=== PATIENT | female | born 1990 | race Caucasian/White ===

== ENCOUNTER 2017-11-26 21:15 | Outpatient (CLI) | payer MEDICAID, SELFPAY ==
[2017-11-26 22:25] LABS: Hematocrit 36.9 % (37-47); Hemoglobin 12.6 g/dl (12.0-15.0); Mean Corp Hgb Conc 34.1 g/gl (32-36); Mean Corpuscular Hgb 31.1 pg (27.0-32.0); Mean Corpuscular Volume 91.1 fL (81-99); Mean Platelet Vol. 9.6 fl (6.2-12.0); Platelet Count 208 K/mm3 (150-450); RBC Distribution Width CV 13.1 % (11.6-14.6); RBC Distribution Width SD 43.3 fl (35.1-43.9); Red Blood Count 4.05 M/mm3 (4.2-5.4); White Blood Count 13.4 K/mm3 (4.4-11.0)
[2017-11-26 22:26] LABS: Scan Indicated on CBC? Y/N NO
[2017-11-26 22:30] LABS: Partial Thromboplast Time 25.2 Seconds (24.1-36.2)
[2017-11-27 00:05] VITALS: BP 126/65; PULSE 105; RESP 18; TEMP 35.9; O2SAT 98
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
[2017-11-29 10:30] LABS: Kleihauer-Betke Negative
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
== END 2017-11-26 22:15 | disposition home or self-care (01) ==
LOC: WPOUT 21:25 → WP 21:26
PROVIDERS: Family Provider Internal Medicine; PCP Internal Medicine; Visit Provider Obstetrics & Gynecology
DX: O99.89 Other specified diseases and conditions complicating pregnancy, childbirth and the puerperium (principal); S09.90XA Unspecified injury of head, initial encounter; Y04.2XXA Assault by strike against or bumped into by another person, initial encounter; Y93.89 Activity, other specified; Y92.9 Unspecified place or not applicable; Z3A.18 18 weeks gestation of pregnancy
CPT/HCPCS: 59050; 85027; 85460; 85730; 86850; 86900; 99218; G0378

== ENCOUNTER 2017-11-26 22:20 | Emergency (ER) | payer MEDICAID, SELFPAY ==
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
[2017-11-26 22:21] VITALS: BP 140/80; PULSE 119; RESP 8; TEMP 37.4; O2SAT 97; BMI 32.3
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
[2017-11-26] MEDS: Acetaminophen 325 MG Tablet 650 MG PO (23:48)
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
--- NOTE | 2017-11-27 02:25 | ED.RN ---
pt states she is tired of waiting for results. states she is leaving. advised pt that she was leaving against medical advice. pt verbalized understanding.
== END 2017-11-27 02:27 | disposition left against medical advice (07) ==
LOC: ED 11-27 00:28
PROVIDERS: Emergency Provider Emergency Medicine; Family Provider Internal Medicine; PCP Internal Medicine
DX: O99.89 Other specified diseases and conditions complicating pregnancy, childbirth and the puerperium (principal); S06.0X0A Concussion without loss of consciousness, initial encounter; W50.0XXA Accidental hit or strike by another person, initial encounter; Y93.9 Activity, unspecified; Y92.9 Unspecified place or not applicable; R55 Syncope and collapse; O99.332 Smoking (tobacco) complicating pregnancy, second trimester; Z3A.18 18 weeks gestation of pregnancy
CPT/HCPCS: 70450; 99281

== ENCOUNTER → 2018-02-01 08:46 | Outpatient (CLI) | payer MEDICAID, SELFPAY ==
[2018-02-01 09:33] LABS: Absolute Lymphocyte Count 1.45 X10^3/ul (0.83-4.51); Absolute Neutrophil Count 11.9 X10^3/uL (2.0-7.7); Basophil# 0.02 X10^3/uL; Basophil% 0.1 % (0-1); Eosinophil# 0.13 X10^3/uL; Eosinophils% 0.9 % (0-5); Hematocrit 38.3 % (37-47); Hemoglobin 12.8 g/dl (12.0-15.0); Lymphocyte # 1.45 X10^3/ul (4.0); Lymphocyte % 10.3 % (19-41); Mean Corp Hgb Conc 33.4 g/gl (32-36); Mean Corpuscular Hgb 31.1 pg (27.0-32.0); Mean Corpuscular Volume 93.2 fL (81-99); Mean Platelet Vol. 9.6 fl (6.2-12.0); Monocyte# 0.63 X10^3/uL; Monocyte% 4.5 % (0-10); Neutrophil # 11.85 X10^3/uL (2.7-7.7); Platelet Count 224 K/mm3 (150-450); RBC Distribution Width CV 12.3 % (11.6-14.6); RBC Distribution Width SD 41.2 fl (35.1-43.9); Red Blood Count 4.11 M/mm3 (4.2-5.4); White Blood Count 14.1 K/mm3 (4.4-11.0)
[2018-02-01 09:39] LABS: POSITIVE COUNT NO; POSITIVE DIFFERENTIAL NO; POSITIVE MORPHOLOGY NO
[2018-02-01 10:01] LABS: Glucose Challenge Gest 1H 50g 134 mg/dL (70-140)
[2018-02-02 02:41] LABS: Rapid Plasmin Reagin (RPR) NONREACTIVE (NONREACTIVE)
[2018-02-02 10:16] LABS: HIV - WCH Non-Reactive (Nonreactive)
[2018-02-03 00:23] LABS: HCV Quant. RNA PCR HCV Not Detected IU/mL (.)
== END ==
PROVIDERS: Visit Provider Obstetrics & Gynecology
DX: Z34.90 Encounter for supervision of normal pregnancy, unspecified, unspecified trimester (principal); Z11.3 Encounter for screening for infections with a predominantly sexual mode of transmission
CPT/HCPCS: 36415; 82950; 85025; 86592; 86703; 86850; 86900; 87522

== ENCOUNTER 2018-04-12 11:15 | Inpatient (IN) | payer MEDICAID, SELFPAY ==
[2018-04-12 11:00] VITALS: BMI 35.0
[2018-04-12 11:34] LABS: ROM Internal Control Test YES-OK TO RESULT pt. (Internal QC); ROM Patient Test Negative (Negative)
[2018-04-12] MEDS: Lactated Ringers 1,000 ML 50 ML IV ×2 (11:35→12:58)
[2018-04-12 11:58] LABS: Hematocrit 36.5 % (37-47); Hemoglobin 11.7 g/dl (12.0-15.0); Mean Corp Hgb Conc 32.1 g/gl (32-36); Mean Corpuscular Hgb 28.2 pg (27.0-32.0); Mean Platelet Vol. 9.3 fl (6.2-12.0); Platelet Count 345 K/mm3 (150-450); RBC Distribution Width CV 12.9 % (11.6-14.6); RBC Distribution Width SD 41.2 fl (35.1-43.9); Red Blood Count 4.15 M/mm3 (4.2-5.4); White Blood Count 16.2 K/mm3 (4.4-11.0)
[2018-04-12 11:59] LABS: Scan Indicated on CBC? Y/N NO
[2018-04-12 12:59] LABS: Group B Strep DNA By PCR Negative (Negative)
[2018-04-12 13:00] LABS: Internal Control PASS; Probe Check PASS; Specimen Processing Control PASS
[2018-04-12] MEDS: fentaNYL-bupivacaine (epidural) 100 ML BAG EPIDURAL (14:35)
[2018-04-12] MEDS: Ondansetron 4 MG/2 ML Vial IV (15:08)
[2018-04-12] MEDS: Oxytocin 30 units/NS 500 ml 30 UNITS/500 ML IV.SOLN 334 UNITS IV (16:22)
[2018-04-12] MEDS: Oxytocin 30 units/NS 500 ml 30 UNITS/500 ML IV.SOLN 167 UNITS IV (16:52)
--- NOTE | 2018-04-12 18:16 | PCM.HP.OB ---
- Problem List (1) Contraception management Status: Acute Qualifiers: Comment: plan PPTL title 19 form signed 02/01/18 (2) Previous child with anomaly, antepartum Status: Acute Comment: previous child with gastroschesis, another with tracheomalacia. normal anatomy scan. recommend third trimester growth scan (3) Supervision of high-risk Status: Acute Qualifiers: Comment: PRR boy PC anibal joyce madelaina Jonathan (4) Anxiety during Status: Acute Comment: ke, counseling suggested History Date of Admission: 04/12/18 Final ROBBIN: 04/29/18 Gestational age: 37 Weeks and 4 Days History of this : This is a 27 year-old, at 37 weeks gestational age presents IAL. she has had a complicated by transfer of care and some social issues in the beginning of . she had an ultrasound today with MFM that showed a bilateral hydrocele and frontal bossing of the head but otherwise it was normal. Medical History: Medical History (Last Reviewed 04/05/18 @ 09:24 by Marleny Encinas) Anxiety F41.9 Depression F32.9 Surgical History: Surgical History (Last Reviewed 04/05/18 @ 09:24 by Marleny Encinas) H/O dilation and curettage Z98.890 Allergies nalbuphine HCl [From Nubain] Allergy (Verified 04/05/18 09:24) Angioedema bupropion HCl [From Wellbutrin] Adverse Reaction (Verified 04/05/18 09:24) PSYCHOTIC EPISODES paroxetine [From Paxil] Adverse Reaction (Verified 04/05/18 09:24) DIZZINESS Home Medications: Home Medications citalopram 20 mg tablet 20 mg PO QDAY #30 tab 02/01/18 vitamin,calcium,mjrwpbcp-pyrf-zaazd acid tablet 1 tab PO QDAY 02/01/18 amoxicillin 500 mg capsule 1,000 mg PO BID 10 Days #40 cap 04/05/18 Smoking Status: Current every day smoker Alcohol: None Number of Fetus(es): 1 Heart Tracins moderate variability reactive no decels cat I tracing TOCO Analysis: q 2-3 History Past Pregnancies: Past Pregnancies Pregancy History 13 Elective abortions Hx Para 3 Spontaneous abortions 9 Hx # Term Pregnancies 3 Ectopic pregnancies Hx # Pregnancies Multiple births # of living children 3 Past Pregnancies Del. 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 Unknown 2013 Anibal 40 live - full term Male [place] Labs: Mom's Microbiology 04/12/18 Unknown Genital vaginal Group B Streptococcus Culture - Pending Mom's Labs & Results 04/12/18 04/12/18 04/12/18 11:05 11:30 11:35 WBC 16.2 H RBC 4.15 L Hgb 11.7 L Hct 36.5 L MCV 88.0 MCH 28.2 MCHC 32.1 RDW 12.9 RDW Differential 41.2 Plt Count 345 MPV 9.3 Vag Amniotic Fld Detect Negative Group B Strep DNA Negative Specimen Comment Not Reportable Blood Type Antibody Screen 04/12/18 11:35 WBC RBC Hgb Hct MCV MCH MCHC RDW RDW Differential Plt Count MPV Vag Amniotic Fld Detect Group B Strep DNA Specimen Comment Blood Type A POSITIVE Antibody Screen NEGATIVE Course Did the patient receive Yes care? Labs Blood Type: A RH: POSITIVE RPR/VDRL/Syphilis Nonreactive Rubella status Immune HbSAg Negative Date Done: 10/16/17 Chlamydia Negative Gonorrhea Negative HIV/AIDS Non-Reactive Group B Strep: Collected on Admission Current Obstetrical History Gestational Diabetes No Incompetent Cervix No Infertility No IUGR No Macrosomia No Hypertension/Pre-eclampsia No Placenta Previa/Abruption No PTL/PROM No Uterine anomaly No Oligohydramnios No Polyhydramnios No Multiple gestation No Past Medical History Asthma No Diabetes No Hypertension No Heart disease No Mitral valve prolapse No Neurologic/Seizure disorder/ No Migraines Kidney disease No Liver disease No Varicosities No Clotting disorders/Hx of DVT No Thyroid Dysfunction No Other medical diseases No Psychiatric disorders No Major trauma No Abnormal PAP smear No Sleep apnea No Mammogram in the last 2 years No Social History Marital Status: SINGLE Alleged father Jonathan Hx Smoking Yes Smoking Status Current every day smoker Expected Infant Delivery Method: Spontaneous Vaginal Review of Systems Constitutional: Denies: Fever, Malaise Eyes: Denies: Blurred vision, Vision Change HEENT: Denies: Head Aches, Visual Changes Cardiovascular: Denies: Chest Pain, Palpitations Respiratory: Denies: Cough, Shortness of Breath, Wheezing Gastrointestinal: Reports: Abdominal Pain, Nausea. Denies: Diarrhea, Vomiting Genitourinary: Denies: Dysuria, Hematuria Musculoskeletal: Denies: Joint Pain, Muscle pain Skin: Denies: Lesions, Rash Neurological: Denies: Blurred vision, Focal weakness, Headaches Psychiatric: Denies: Anxiety, Depression Endocrine: Denies: Heat/ Cold Intolerance Hematologic/ Lymphatic: Denies: Easy Bruising, Easy Bleeding Physical Exam General: Alert, Cooperative, No apparent distress HEENT: Atraumatic, Normocephalic. Negative for: Thyromegaly, Lymphadenopathy Cardiovascular: Regular rate Lungs: Normal air movement Abdomen: Soft, Non Tender, Gravid Neurological: Deep Tendon Reflexes 2+/4 and Symmetrical, Neuro grossly intact. Negative for: Clonus SCIENCE LIAISON: Normal external genitalia. Negative for: Vulvar lesions Estimated gestational size: Appropriate for gestational size Presentation: Cephalic Cervix Dilation (cm): 4 Assessment/Plan All Active Problems (Last Reviewed 04/05/18 @ 09:24 by Marleny Encinas) Bronchitis (Acute) Contraception management (Acute) Previous child with anomaly, antepartum (Acute) Supervision of high-risk (Acute) Anxiety during (Acute) Trauma (Resolved) This is a 27 year-old, [id number] 37 weeks gestational age. Patient presents IAL, plan expectant management for , pitocin/AROM PRN if needed. Pain management: plans epidural. GBS negative. Management of any complications: discussed ultrasound abnormalities with ped I have reviewed the [facility] and made any clinically relevant updates.
--- NOTE | 2018-04-12 18:20 | HP.PCM_ITS ---
- Problem List (1) Contraception management Status: Acute Qualifiers: Comment: plan PPTL title 19 form signed 02/01/18 (2) Previous child with anomaly, antepartum Status: Acute Comment: previous child with gastroschesis, another with tracheomalacia. normal anatomy scan. recommend third trimester growth scan (3) Supervision of high-risk Status: Acute Qualifiers: Comment: PRR boy PC anibal joyce madelaina Jonathan (4) Anxiety during Status: Acute Comment: ke, counseling suggested History Date of Admission: 04/12/18 Final ROBBIN: 04/29/18 Gestational age: 37 Weeks and 4 Days History of this : This is a 27 year-old, at 37 weeks gestational age presents IAL. she has had a complicated by transfer of care and some social issues in the beginning of . she had an ultrasound today with MFM that showed a bilateral hydrocele and frontal bossing of the head but otherwise it was normal. Medical History: Medical History (Last Reviewed 04/05/18 @ 09:24 by Marleny Encinas) Anxiety F41.9 Depression F32.9 Surgical History: Surgical History (Last Reviewed 04/05/18 @ 09:24 by Marleny Encinas) H/O dilation and curettage Z98.890 Allergies nalbuphine HCl [From Nubain] Allergy (Verified 04/05/18 09:24) Angioedema bupropion HCl [From Wellbutrin] Adverse Reaction (Verified 04/05/18 09:24) PSYCHOTIC EPISODES paroxetine [From Paxil] Adverse Reaction (Verified 04/05/18 09:24) DIZZINESS Home Medications: Home Medications citalopram 20 mg tablet 20 mg PO QDAY #30 tab 02/01/18 vitamin,calcium,tqcdepfz-oohz-vymxv acid tablet 1 tab PO QDAY 02/01/18 amoxicillin 500 mg capsule 1,000 mg PO BID 10 Days #40 cap 04/05/18 Smoking Status: Current every day smoker Alcohol: None Number of Fetus(es): 1 Heart Tracins moderate variability reactive no decels cat I tracing TOCO Analysis: q 2-3 History Past Pregnancies: Past Pregnancies Pregancy History 13 Elective abortions Hx Para 3 Spontaneous abortions 9 Hx # Term Pregnancies 3 Ectopic pregnancies Hx # Pregnancies Multiple births # of living children 3 Past Pregnancies Del. 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 Unknown 2013 Anibal 40 live - full term Male [place] Labs: Mom's Microbiology 04/12/18 Unknown Genital vaginal Group B Streptococcus Culture - Pending Mom's Labs & Results 04/12/18 04/12/18 04/12/18 11:05 11:30 11:35 WBC 16.2 H RBC 4.15 L Hgb 11.7 L Hct 36.5 L MCV 88.0 MCH 28.2 MCHC 32.1 RDW 12.9 RDW Differential 41.2 Plt Count 345 MPV 9.3 Vag Amniotic Fld Detect Negative Group B Strep DNA Negative Specimen Comment Not Reportable Blood Type Antibody Screen 04/12/18 11:35 WBC RBC Hgb Hct MCV MCH MCHC RDW RDW Differential Plt Count MPV Vag Amniotic Fld Detect Group B Strep DNA Specimen Comment Blood Type A POSITIVE Antibody Screen NEGATIVE Course Did the patient receive Yes care? Labs Blood Type: A RH: POSITIVE RPR/VDRL/Syphilis Nonreactive Rubella status Immune HbSAg Negative Date Done: 10/16/17 Chlamydia Negative Gonorrhea Negative HIV/AIDS Non-Reactive Group B Strep: Collected on Admission Current Obstetrical History Gestational Diabetes No Incompetent Cervix No Infertility No IUGR No Macrosomia No Hypertension/Pre-eclampsia No Placenta Previa/Abruption No PTL/PROM No Uterine anomaly No Oligohydramnios No Polyhydramnios No Multiple gestation No Past Medical History Asthma No Diabetes No Hypertension No Heart disease No Mitral valve prolapse No Neurologic/Seizure disorder/ No Migraines Kidney disease No Liver disease No Varicosities No Clotting disorders/Hx of DVT No Thyroid Dysfunction No Other medical diseases No Psychiatric disorders No Major trauma No Abnormal PAP smear No Sleep apnea No Mammogram in the last 2 years No Social History Marital Status: SINGLE Alleged father Jonathan Hx Smoking Yes Smoking Status Current every day smoker Expected Infant Delivery Method: Spontaneous Vaginal Review of Systems Constitutional: Denies: Fever, Malaise Eyes: Denies: Blurred vision, Vision Change HEENT: Denies: Head Aches, Visual Changes Cardiovascular: Denies: Chest Pain, Palpitations Respiratory: Denies: Cough, Shortness of Breath, Wheezing Gastrointestinal: Reports: Abdominal Pain, Nausea. Denies: Diarrhea, Vomiting Genitourinary: Denies: Dysuria, Hematuria Musculoskeletal: Denies: Joint Pain, Muscle pain Skin: Denies: Lesions, Rash Neurological: Denies: Blurred vision, Focal weakness, Headaches Psychiatric: Denies: Anxiety, Depression Endocrine: Denies: Heat/ Cold Intolerance Hematologic/ Lymphatic: Denies: Easy Bruising, Easy Bleeding Physical Exam General: Alert, Cooperative, No apparent distress HEENT: Atraumatic, Normocephalic. Negative for: Thyromegaly, Lymphadenopathy Cardiovascular: Regular rate Lungs: Normal air movement Abdomen: Soft, Non Tender, Gravid Neurological: Deep Tendon Reflexes 2+/4 and Symmetrical, Neuro grossly intact. 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 Negative for: Vulvar lesions Estimated gestational size: Appropriate for gestational size Presentation: Cephalic Cervix Dilation (cm): 4 Assessment/Plan All Active Problems (Last Reviewed 04/05/18 @ 09:24 by Marleny Encinas) Bronchitis (Acute) Contraception management (Acute) Previous child with anomaly, antepartum (Acute) Supervision of high-risk (Acute) Anxiety during (Acute) Trauma (Resolved) This is a 27 year-old, [id number] 37 weeks gestational age. Patient presents IAL, plan expectant management for , pitocin/AROM PRN if needed. Pain management: plans epidural. GBS negative. Management of any complications: discussed ultrasound abnormalities with ped I have reviewed the [facility] and made any clinically relevant updates.
[2018-04-12] MEDS: Acetaminophen 500 MG Tablet 1000 MG PO (18:29)
--- NOTE | 2018-04-12 19:50 | NURSING ---
Patient requesting to go outside to smoke. Patient still has epidural catheter and IV in place for tubal scheduled for tomorrow at 1300. Dr. Ellis talked to patient. Patient no longer wants to have tubal tomorrow.
[2018-04-12 20:00] VITALS: BP 117/64; PULSE 74; RESP 18; TEMP 36.2; O2SAT 97
--- NOTE | 2018-04-12 20:06 | PCM.OB.VAG ---
- Problem List (1) Contraception management Status: Acute Qualifiers: Comment: plan PPTL title 19 form signed 02/01/18 (2) Previous child with anomaly, antepartum Status: Acute Comment: previous child with gastroschesis, another with tracheomalacia. normal anatomy scan. recommend third trimester growth scan (3) Supervision of high-risk Status: Acute Qualifiers: Comment: PRR boy PC ina joyce madelaina Jonathan (4) Anxiety during Status: Acute Comment: celexa, counseling suggested Vaginal Delivery Maternal Presentation: Active Labor ial 37 weeks Amniotic Membrane Rupture Type: Artificial Amniotic Fluid Description: Clear Final ROBBIN: 04/29/18 Gestational age: 37 Weeks and 4 Days Date of Procedure: 04/12/18 Pre-Operative Diagnosis: ial Post-Operative Diagnosis: same Surgery/ Procedure Performed: Spontaneous Vaginal Delivery Type of Anesthesia: Epidural Description of Procedure: Patient began pushing and delivered the head in the DAMION presentation. The head was delivered atraumatically . The anterior and posterior shoulders delivered without complication followed by the rest of the and the was placed on the maternal abdomen. Delayed cord clamping was employed for approximately 60 seconds. Cord was clamped and cut and gentle traction was applied to the cord and the placenta delivered spontaneously immediately following it was noted to be intact with three-vessel cord. The perineum and vagina were inspected and noted to have a small first-degree perineal laceration that was repaired with a single [id number] suture. EBL was 4 50 cc. Patient and tolerated delivery well. Presentation: DAMION Placental Delivery Description: Spontaneous Placenta Disposition: [facility]
--- NOTE | 2018-04-12 20:10 | NURSING ---
Epidural catheter removed, blue tip intact.
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
--- NOTE | 2018-04-12 21:34 | NURSING ---
Patient voided x2 out of hat before IV was removed.
[2018-04-12] MEDS: Citalopram 20 MG Tablet PO (22:21)
[2018-04-12] MEDS: Naproxen 250 MG Tablet PO (22:22)
[2018-04-12] MEDS: AMOXICILLIN 500 MG CAPSULE 1000 MG PO (22:23)
[2018-04-13 00:30] VITALS: BP 112/65; PULSE 65; RESP 18; TEMP 36.2; O2SAT 95
[2018-04-13 04:30] VITALS: BP 116/77; PULSE 62; RESP 18; TEMP 36.2; O2SAT 97
--- NOTE | 2018-04-13 08:22 | PCM.PN.OB ---
Subjective: NO CP, LOF. Plans nexplanon insertion today then home. Pain controlled. - Physical Exam General: Alert, Oriented x3 Abdomen: Soft, Non Tender, - - FF below U Vital Signs Temp Pulse Resp BP Pulse Ox 97.2 F L 62 18 116/77 97 04/13/18 04:30 04/13/18 04:30 04/13/18 04:30 04/13/18 04:30 04/13/18 04:30 Oxygen Delivery Method Room Air Weight: 204 lb 4 oz Body Mass Index (BMI) 35.0 Intake and Output for Last 24 Hours 04/11/18 04/12/18 04/13/18 23:59 23:59 23:59 Intake Total 1100 / 1100 Balance 1100 / 1100 Laboratory Tests Past 24 Hrs 04/12/18 04/12/18 04/12/18 11:05 11:30 11:35 WBC 16.2 H RBC 4.15 L Hgb 11.7 L Hct 36.5 L MCV 88.0 MCH 28.2 MCHC 32.1 RDW 12.9 RDW Differential 41.2 Plt Count 345 MPV 9.3 Vag Amniotic Fld Detect Negative Group B Strep DNA Negative Specimen Comment Not Reportable Blood Type Antibody Screen 04/12/18 11:35 WBC RBC Hgb Hct MCV MCH MCHC RDW RDW Differential Plt Count MPV Vag Amniotic Fld Detect Group B Strep DNA Specimen Comment Blood Type A POSITIVE Antibody Screen NEGATIVE Medical Necessity - Tobacco Use Smoking Status: Current every day smoker Assessment/Plan All Active Problems (Last Reviewed 04/05/18 @ 09:24 by Marleny Encinas) Bronchitis (Acute) Contraception management (Acute) Previous child with anomaly, antepartum (Acute) Supervision of high-risk (Acute) Anxiety during (Acute) Trauma (Resolved) PPD #1 Routine care. Nexplanon today the wi home.
--- NOTE | 2018-04-13 08:25 | PCM.DCVAG ---
Additional Instructions: If you experience any of the following, contact your healthcare provider. Bleeding that soaks a pad every hour for 2 hours Fever 100.4 or higher Unrelieved incision or abdominal pain Swelling, redness, discharge or bleeding from your incision or episiotomy site Your incision begins to separate Problems urinating (including inability to urinate or burning while urinating). Visual changes Severe headache Flu-like symptoms Pain or redness in one of both of your breasts Pain, warmth, tenderness or swelling in your legs, especially the calf area Frequent nausea and vomiting Symptoms of depression or anxiety If you experience any of the following, call 911 or go to the nearest Emergency Room. Chest pain Problems breathing Seizure activity Partial or complete paralysis of a body part, slurred speech, weakness or drooping of the face, or a sudden inability to walk or hold your balance Allergies/Adverse Reactions: Allergies nalbuphine HCl [From Nubain] Allergy (Verified 04/05/18 09:24) Angioedema bupropion HCl [From Wellbutrin] Adverse Reaction (Verified 04/05/18 09:24) PSYCHOTIC EPISODES paroxetine [From Paxil] Adverse Reaction (Verified 04/05/18 09:24) DIZZINESS Medications to take at Discharge citalopram 20 mg tablet 20 mg PO QDAY #30 tab 02/01/18 vitamin,calcium,bfwaqzte-sklg-nkdyl acid tablet 1 tab PO QDAY 02/01/18 amoxicillin 500 mg capsule 1,000 mg PO BID 10 Days #40 cap 04/05/18 Primary Care Physician: Care Physician,No Primary [Primary Care Provider] - Test Results: Test results from this visit will be discussed in further detail at your follow-up appointment, if applicable.
--- NOTE | 2018-04-13 08:26 | DCINST_ITS ---
Additional Instructions: If you experience any of the following, contact your healthcare provider. * Bleeding that soaks a pad every hour for 2 hours * Fever 100.4 or higher * Unrelieved incision or abdominal pain * Swelling, redness, discharge or bleeding from your incision or episiotomy site * Your incision begins to separate * Problems urinating (including inability to urinate or burning while urinating) . * Visual changes * Severe headache * Flu-like symptoms * Pain or redness in one of both of your breasts * Pain, warmth, tenderness or swelling in your legs, especially the calf area * Frequent nausea and vomiting * Symptoms of depression or anxiety If you experience any of the following, call 911 or go to the nearest Emergency Room. * Chest pain * Problems breathing * Seizure activity * Partial or complete paralysis of a body part, slurred speech, weakness or drooping of the face, or a sudden inability to walk or hold your balance Allergies/Adverse Reactions: Allergies nalbuphine HCl [From Nubain] Allergy (Verified 04/05/18 09:24) Angioedema bupropion HCl [From Wellbutrin] Adverse Reaction (Verified 04/05/18 09:24) PSYCHOTIC EPISODES paroxetine [From Paxil] Adverse Reaction (Verified 04/05/18 09:24) DIZZINESS Medications to take at Discharge citalopram 20 mg tablet 20 mg PO QDAY #30 tab 02/01/18 vitamin,calcium,rxpfjshb-rzos-ccdxa acid tablet 1 tab PO QDAY 02/01/18 amoxicillin 500 mg capsule 1,000 mg PO BID 10 Days #40 cap 04/05/18 Primary Care Physician: Care Physician,No Primary [Primary Care Provider] - Test Results: Test results from this visit will be discussed in further detail at your follow- up appointment, if applicable.
[2018-04-13] MEDS: AMOXICILLIN 500 MG CAPSULE 1000 MG PO (08:31)
[2018-04-13] MEDS: Senna/Docusate Sodium 1 Tablet PO (08:31)
[2018-04-13] MEDS: Citalopram 20 MG Tablet PO (08:31)
[2018-04-13] MEDS: Prenatal Vits Tablet 1 TABLET PO (08:31)
[2018-04-13 08:49] VITALS: BP 117/86; PULSE 89; RESP 16; TEMP 36.4; O2SAT 95
[2018-04-13] MEDS: Naproxen 250 MG Tablet PO (11:40)
--- NOTE | 2018-04-13 12:20 | PCM.OP.BLANK ---
Problem List (1) Contraception management Status: Acute Qualifiers: Comment: plan PPTL title 19 form signed 02/01/18 (2) Previous child with anomaly, antepartum Status: Acute Comment: previous child with gastroschesis, another with tracheomalacia. normal anatomy scan. recommend third trimester growth scan (3) Supervision of high-risk Status: Acute Qualifiers: Comment: PRR boy PC ina joyce madelaina Jonathan (4) Anxiety during Status: Acute Comment: ke, counseling suggested Operative Report Date of Procedure: 04/13/18 patient confirmed site device s/p immediate PP nexplanon desired. left arm 8 cm from medial epicondyle prepped with chloraprep and injected with 1% lidocaine. 5 mm incision made and nexplanon device inserted without difficulty subcutaneously. steri strip and pressure bandage applied. patient tolerated procedure well no complications.
[2018-04-13 12:22] VITALS: BP 119/63; PULSE 76; RESP 18; TEMP 36.2; O2SAT 97
[2018-04-13] MEDS: Etonogestrel 68 MG IMPLANT SQ (13:24)
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
[2018-04-13] MEDS: oxyCODONE 5 MG Tablet PO (13:34)
--- NOTE | 2018-04-13 15:00 | CASEMGMT ---
Social Work Labor and Delivery Unit Called [facility] ([facility]) and spoke with Cynthia Curiel in the intake department. Referral given due to [facility] having an active case with this this family and new minor going into the home. Brief maternal and histories provided to Cynthia. Reviewed reports by nursing staff and documentation about observed interactions nursing has had with MOB, support person, and other children. Cynthia reports will add information reported today. No other services requested or indicated. See previous social work documentation this date for details of family history and resources provided. -RUFINA Singleton, WEALTH MANAGEMENT ADVISOR
[2018-04-13 15:45] VITALS: BP 127/54; PULSE 65; RESP 17; TEMP 36.3; O2SAT 97
== END 2018-04-13 17:30 | disposition home or self-care (01) | DRG 373 ==
LOC: WPOUT 11:19 → WP 12:55
PROVIDERS: Admitting Provider Obstetrics & Gynecology; Visit Provider Obstetrics & Gynecology
DX: O35.8XX0 Maternal care for other (suspected) fetal abnormality and damage, not applicable or unspecified (principal); O26.23 Pregnancy care for patient with recurrent pregnancy loss, third trimester; O70.0 First degree perineal laceration during delivery; O99.344 Other mental disorders complicating childbirth; F41.9 Anxiety disorder, unspecified; O99.334 Smoking (tobacco) complicating childbirth; Z87.59 Personal history of other complications of pregnancy, childbirth and the puerperium; Z3A.37 37 weeks gestation of pregnancy; Z37.0 Single live birth; Z30.017 Encounter for initial prescription of implantable subdermal contraceptive
CPT/HCPCS: 59025; 59050; 84112; 85027; 86850; 86900; 87081; 87653; 99218; J7120; G0378; J2405

== ENCOUNTER → 2018-08-09 13:08 | Outpatient (CLI) | payer MEDICAID, SELFPAY | PROVIDERS: Referring Provider Obstetrics & Gynecology; Visit Provider Obstetrics & Gynecology | DX: Z01.818 Encounter for other preprocedural examination (principal) | CPT/HCPCS: 86735 ==

== ENCOUNTER 2019-06-11 19:07 | Emergency (ER) | payer MEDICAID, SELFPAY ==
[2019-06-11 19:08] VITALS: BP 113/71; PULSE 107; RESP 16; TEMP 36.8; O2SAT 98; BMI 35.2
--- NOTE | 2019-06-11 19:22 | ED.RN ---
DR ANAND CONSULTED ON PT. PER 'S ORDER OB CALLED AND CONSULTED. NOVELTY DIPPER STATED PT CARE WAS APPROPRIATE FOR ED. Gianni STANFORD RN [phone]
[2019-06-11 19:45] VITALS: BP 113/71; PULSE 107; RESP 16; TEMP 36.8; O2SAT 98
--- NOTE | 2019-06-11 21:36 | DCINST.ED_ITS ---
ED Disposition - Plan for ED Patient: Instructions: ED Dyspnea Referrals: Toña Parra CNM [Certified Nurse Production Or Plant Engineer] -
--- NOTE | 2019-06-12 01:03 | ED.VISSUMM ---
- ER Visit Summary Date of Service: 06/12/19 Chief Complaint: Cough History of Present Illness: The patient is a 29 F presenting with cough x2 weeks. She has had a nonproductive cough. She denies fever or chills. She is currently 21 weeks . She denies vaginal bleeding or contractions. She also complains of right upper quadrant abdominal pain which is worsened with deep inspiration. Denies nausea, vomiting, diarrhea. Denies urinary complaints. She is . Physical Examination: Vitals are stable. Heart rate 107. Patient is afebrile. Pulse ox 98% on room air. Alert no acute distress. HEENT exam is unremarkable. Neck is supple. Lungs are clear and equal bilaterally. Heart is regular and tachycardic Abdomen is soft gravid, mild right upper quadrant tenderness with no rebound or guarding Extremities are unremarkable. Skin is warm and dry. No focal neurologic deficit. Remainder of exam is unremarkable. Emergency Department Course and Treatment: heart tones 150. Patient states she is unable to stay in the ED for any testing. She states she needs to get home to her children. She declines chest x-ray, labs, evaluation for PE. She understands risks of leaving AGAINST MEDICAL ADVICE and signs out AGAINST MEDICAL ADVICE. She will follow-up with her CIGAR PACKER AND SORTER tomorrow. She is advised to return to ED for worsening complaints. Disposition: AGAINST MEDICAL ADVICE Impression: Cough, URI This note was generated with [employer] dictation software. It may contain incorrect words, spelling, and punctuation that were not noted in review of the chart prior to signing ED Disposition - Plan for ED Patient: Disposition: Against Medical Advice Instructions: ED Dyspnea Referrals: Toña Parra CNM [Certified Nurse Plate Conditioner] -
== END 2019-06-11 21:40 | disposition left against medical advice (07) ==
PROVIDERS: Emergency Provider Emergency Medicine
DX: O99.512 Diseases of the respiratory system complicating pregnancy, second trimester (principal); J06.9 Acute upper respiratory infection, unspecified; O26.892 Other specified pregnancy related conditions, second trimester; R10.11 Right upper quadrant pain; O99.332 Smoking (tobacco) complicating pregnancy, second trimester; Z3A.21 21 weeks gestation of pregnancy; Z53.29 Procedure and treatment not carried out because of patient's decision for other reasons
CPT/HCPCS: 99282

== ENCOUNTER 2019-07-28 13:40 | Outpatient (CLI) | payer MEDICAID, SELFPAY ==
[2019-07-28 14:06] VITALS: BMI 37.0
[2019-07-28 14:24] LABS: Color, Urine Straw (Yellow); Glucose, Dipstick Normal (Normal); Ketone-Dipstick Negative (Negative); Leukocyte Esterase-Dipstick Negative /ul (Negative); Nitrite-Dipstick Negative (Negative); Occult Blood-Urine Negative /ul (Negative); Protein-Dipstick Negative (Negative); Specific Gravity, Urine 1.005 (1.002-1.030); Urine Bilirubin Dipstick Negative (Negative); Urine Clarity Clear (Clear); Urine Urobilinogen Normal (Normal)
[2019-07-28 15:25] VITALS: RESP 18
--- NOTE | 2019-07-28 20:09 | OB.TRI.NOTE ---
- Problem List (1) 28 weeks gestation of Status: Acute (2) Back pain Status: Acute (3) Multiparous Status: Acute (4) URI (upper respiratory infection) Status: Acute History of Present Illness Date of Service: 07/28/19 Was patient seen by the physician?: No Reason For Visit: BACK PAIN Final ROBBIN: 10/14/19 Gestational age: 28 Weeks and 6 Days History of Present Illness: who presents at 28w6d with back pain. Pt went to the ED for respiratory illness, and she was sent to triage for evaluation of low back pain. No cramping, ctx, vb, lof. Good FM. No nausea, vomiting, fevers, chills, urinary symptoms, changes in BM's. Allergies adhesive tape Allergy (Verified 07/28/19 14:06) Rash nalbuphine HCl [From Nubain] Allergy (Verified 07/28/19 14:06) Angioedema bupropion HCl [From Wellbutrin] Adverse Reaction (Verified 07/28/19 14:06) PSYCHOTIC EPISODES paroxetine [From Paxil] Adverse Reaction (Verified 07/28/19 14:06) DIZZINESS paper tape Allergy (Uncoded 07/28/19 14:06) Rash - Pertinent Past Medical History Medical History: Past Medical History (Last Reviewed 05/28/18 @ 10:11 by Chacha Leal) Anxiety Depression Surgical History: Past Surgical History (Last Reviewed 05/28/18 @ 10:11 by Chacha Leal) H/O dilation and curettage Laboratory Studies: Laboratory Tests 07/28/19 Range/Units 13:40 Urine Color Straw (Yellow) Urine Clarity Clear (Clear) Urine pH 7.0 (5.0 - 8.0) Ur Specific [place] 1.005 (1.002-1.030) Urine Protein Negative (Negative) mg/dl Urine Glucose (UA) Normal (Normal) mg/dl Urine Ketones Negative (Negative) mg/dl Urine Occult Blood Negative (Negative) /ul Urine Nitrite Negative (Negative) Urine Bilirubin Negative (Negative) mg/dL Urine Urobilinogen Normal (Normal) mg/dl Ur Leukocyte Esterase Negative (Negative) /ul Physical Exam Vitals: Vital Signs Resp 18 07/28/19 15:25 NST - FHR Rate Baby A Baseline: 130 Variability:: Moderate Accelerations:: 15 x 15 Decelerations:: None NST Reactive:: Yes FHR Category:: Category I Uterine Activity:: Irritability Impression/Plan NST reactive Pt comfortable appearing per RN and sleeping in triage Low back pain likely normal related No signs of PTL To go to ED for evaluation of respiratory illness
== END 2019-07-28 15:25 | disposition home or self-care (01) ==
LOC: WPOUT 13:56 → OBT 13:57
PROVIDERS: Visit Provider Obstetrics & Gynecology
DX: O26.893 Other specified pregnancy related conditions, third trimester (principal); M54.5 Low back pain; O09.43 Supervision of pregnancy with grand multiparity, third trimester; O99.513 Diseases of the respiratory system complicating pregnancy, third trimester; J06.9 Acute upper respiratory infection, unspecified; Z3A.28 28 weeks gestation of pregnancy
CPT/HCPCS: 59025; 59050; 81002; 99218; G0378

== ENCOUNTER → 2019-09-11 11:42 | Outpatient (CLI) | payer MEDICAID, SELFPAY ==
--- NOTE | 2019-09-11 11:47 | VDLE_ITS ---
Reason For Study: Bilateral Edema RIGHT LEFT GSV is normal. GSV is normal. FV is compressible, spontaneous, phasic, FV is compressible, spontaneous, phasic, competent and demonstrates normal competent and demonstrates normal augmentation. augmentation. POP V is compressible, spontaneous, phasic, POP V is compressible, spontaneous, phasic, competent and demonstrates normal competent and demonstrates normal augmentation. augmentation. T/P Trunk is compressible. T/P Trunk is compressible. PTV is compressible. PTV is compressible. RT PerV is compressible. LT PerV is compressible. CFV and SFJ only visualized with color and CFV and SFJ only visualized with color and doppler due to , appears patent. doppler due to , appears patent. Procedure Exam performed in department. A preliminary report was called and/or faxed to [facility]. Interpretation Summary Deep veins of the lower extremities are bilaterally patent and compressible segmentally. There is no evidence of deep vein thrombosis on either side. Valvular competence appears intact within the proximal deep venous systems bilaterally. The great saphenous veins appear bilaterally patent and compressible segmentally. Ordering Physician: Toña Parra Performed By: Krystyna Cochran RVT
== END ==
PROVIDERS: Referring Provider Advanced Practice Midwife; Visit Provider Advanced Practice Midwife
DX: R60.0 Localized edema (principal)
CPT/HCPCS: 93970

== ENCOUNTER 2019-09-18 09:00 | Outpatient (CLI) | payer MEDICAID, SELFPAY ==
[2019-09-18 09:11] VITALS: BP 125/80; PULSE 106; TEMP 98.2; O2SAT 97
[2019-09-18 09:12] VITALS: BMI 38.6
[2019-09-18 10:04] LABS: Mucous, Urine 0 SEEN /hpf (<or=2+); Red Blood Cells-Urine 0 SEEN /hpf (0-5); White Blood Cells 0 SEEN /hpf (0-5)
[2019-09-18 10:06] LABS: Color, Urine Yellow (Yellow); Glucose, Dipstick Normal (Normal); Ketone-Dipstick Negative (Negative); Leukocyte Esterase-Dipstick Negative /ul (Negative); Nitrite-Dipstick Negative (Negative); Occult Blood-Urine Negative /ul (Negative); Protein-Dipstick Negative (Negative); Specific Gravity, Urine 1.005 (1.002-1.030); Urine Bilirubin Dipstick Negative (Negative); Urine Clarity Clear (Clear); Urine Urobilinogen Normal (Normal)
[2019-09-18 10:12] LABS: Bacteria 1+ /hpf (None Seen); Squamous Epithelial Cells - UA 0-5 SEEN /hpf (5-10)
--- NOTE | 2019-09-18 17:36 | OB.TRI.NOTE ---
History of Present Illness Date of Service: 09/18/19 Was patient seen by the physician?: No Reason For Visit: R/O LABOR Date of Service: 09/18/19 Final ROBBIN: 10/14/19 Final ROBBIN Source: US <20 weeks Gestational age: 36 Weeks and 2 Days Allergies adhesive tape Allergy (Verified 07/28/19 14:06) Rash nalbuphine HCl [From Nubain] Allergy (Verified 07/28/19 14:06) Angioedema bupropion HCl [From Wellbutrin] Adverse Reaction (Verified 07/28/19 14:06) PSYCHOTIC EPISODES paroxetine [From Paxil] Adverse Reaction (Verified 07/28/19 14:06) DIZZINESS paper tape Allergy (Uncoded 07/28/19 14:06) Rash - Pertinent Past Medical History Medical History: Past Medical History (Last Reviewed 05/28/18 @ 10:11 by Chacha Leal) Anxiety Depression Surgical History: Past Surgical History (Last Reviewed 05/28/18 @ 10:11 by Chacha Leal) H/O dilation and curettage Laboratory Studies: Laboratory Tests 09/18/19 Range/Units 09:55 Urine Color Yellow (Yellow) Urine Clarity Clear (Clear) Urine pH 7.0 (5.0 - 8.0) Ur Specific [place] 1.005 (1.002-1.030) Urine Protein Negative (Negative) mg/dl Urine Glucose (UA) Normal (Normal) mg/dl Urine Ketones Negative (Negative) mg/dl Urine Occult Blood Negative (Negative) /ul Urine Nitrite Negative (Negative) Urine Bilirubin Negative (Negative) mg/dL Urine Urobilinogen Normal (Normal) mg/dl Ur Leukocyte Esterase Negative (Negative) /ul Urine RBC 0 SEEN (0-5) /hpf Urine WBC 0 SEEN (0-5) /hpf Ur Squamous Epith Cells 0-5 SEEN (5-10) /hpf Urine Bacteria 1+ (None Seen) /hpf Urine Mucus 0 SEEN (<or=2+) /hpf NST - FHR Rate Baby A Baseline: 130 Variability:: Moderate Accelerations:: 15 x 15 Decelerations:: Variable - questionable- difficult to assess due to tracing being broken up NST Reactive:: Yes FHR Category:: Category I - uanble to completely asses but appears to be category 1- however there was a lot of tracing that was broken up Uterine Activity:: irregular Impression/Plan 29yo here for r/o labor 1) Tracing reviewed when i arrived on unit after patient had been discharged home- difficult to completely assess accurately due to break up in tracing- I personally called the patient and asked her to come back so i could get a reactive cat 1 tracing without interruptions. pt stated over the phone that she would come back- still has not arrived on unit nearly 6 hours orly 2) overall the tracing was reassuring but i did ask patient to return
== END 2019-09-18 10:50 | disposition home or self-care (01) ==
PROVIDERS: Referring Provider Obstetrics & Gynecology; Visit Provider Obstetrics & Gynecology
DX: O60.03 Preterm labor without delivery, third trimester (principal); Z3A.36 36 weeks gestation of pregnancy
CPT/HCPCS: 59025; 59050; 81001; 99218; G0378

== ENCOUNTER 2019-09-24 14:10 | Outpatient (CLI) | payer MEDICAID, SELFPAY ==
[2019-09-24 14:57] VITALS: BMI 39.1
--- NOTE | 2019-09-24 22:39 | OB.TRI.NOTE ---
History of Present Illness Was patient seen by the physician?: No Reason For Visit: R/O LABOR Date of Service: 09/24/19 Final ROBBIN: 10/14/19 Final ROBBIN Source: US <20 weeks Gestational age: 37 Weeks and 1 Days Allergies adhesive tape Allergy (Verified 07/28/19 14:06) Rash nalbuphine HCl [From Nubain] Allergy (Verified 07/28/19 14:06) Angioedema bupropion HCl [From Wellbutrin] Adverse Reaction (Verified 07/28/19 14:06) PSYCHOTIC EPISODES paroxetine [From Paxil] Adverse Reaction (Verified 07/28/19 14:06) DIZZINESS paper tape Allergy (Uncoded 07/28/19 14:06) Rash - Pertinent Past Medical History Medical History: Past Medical History (Last Reviewed 05/28/18 @ 10:11 by Chacha Leal) Anxiety Depression Surgical History: Past Surgical History (Last Reviewed 05/28/18 @ 10:11 by Chacha Leal) H/O dilation and curettage NST - FHR Rate Baby A Baseline: 135 Variability:: Moderate Accelerations:: 15 x 15 Decelerations:: Variable NST Reactive:: Yes Uterine Activity:: Q 3 minutes at times Impression/Plan Reactive NST for false labor
== END 2019-09-24 15:15 | disposition home or self-care (01) ==
LOC: WPOUT 14:27 → OBT 14:28
PROVIDERS: Referring Provider Obstetrics & Gynecology; Visit Provider Obstetrics & Gynecology
DX: O47.1 False labor at or after 37 completed weeks of gestation (principal); Z3A.37 37 weeks gestation of pregnancy
CPT/HCPCS: 59025; 59050; 99218; G0378

== ENCOUNTER 2019-09-25 07:15 | Inpatient (IN) | payer MEDICAID, SELFPAY ==
[2019-09-24 14:57] VITALS: BMI 39.1
[2019-09-25] VITALS (38 sets, daily range): BP systolic 115–163; BP diastolic 56–99; PULSE 57–122; RESP 16; TEMP 36.6–37.1; O2SAT 97–99; BMI 38.6
[2019-09-25] MEDS: Lactated Ringers 1,000 ML 50 ML IV (07:45)
[2019-09-25] MEDS: Lactated Ringers 500 ML 999 ML IV (07:50)
[2019-09-25 08:16] LABS: Absolute Lymphocyte Count 3.29 X10^3/uL (0.83-4.51); Absolute Neutrophil Count 16.7 X10^3/uL (2.0-7.7); Basophil# 0.08 X10^3/uL; Basophil% 0.4 % (0-1); Eosinophils% 0.9 % (0-5); Hematocrit 36.1 % (37-47); Hemoglobin 11.5 g/dL (12.0-15.0); Lymphocyte # 3.29 X10^3/ul (4.0); Lymphocyte % 15.1 % (19-41); Mean Corp Hgb Conc 31.9 g/dL (32-36); Mean Corpuscular Hgb 27.6 pg (27.0-32.0); Mean Corpuscular Volume 86.6 fL (81-99); Mean Platelet Vol. 9.4 fl (6.2-12.0); Monocyte# 1.42 X10^3/uL; Monocyte% 6.5 % (0-10); NRBC Flagged by Analyzer 0 % (0-5); Neutrophil # 16.66 X10^3/uL (2.7-7.7); Neutrophil % 76.4 % (47-70); Platelet Count 411 K/mm3 (150-450); RBC Distribution Width CV 12.9 % (11.6-14.6); RBC Distribution Width SD 40.7 fl (35.1-43.9); Red Blood Count 4.17 M/mm3 (4.2-5.4); White Blood Count 21.8 K/mm3 (4.4-11.0)
--- NOTE | 2019-09-25 09:07 | PCM.HP.OB ---
History Date of Admission: 04/12/18 Final ROBBIN: 10/20/19 Final ROBBIN Source: US <20 weeks Gestational age: 36 Weeks and 3 Days History of this : This is a 29 year-old, 054 who presents at 36-3/7 weeks with spontaneous rupture or membranes. Current has been complicated to date by maternal obesity with BMI of 38. She had chlamydia and Trichomonas at the beginning of , was rescreened in April and was negative. She has a history of bipolar disorder. She had an ultrasound last week which revealed estimated weight 7 lbs. 14 oz., at the 97th percentile. Mild idiopathic polyhydramnios. She denies a drug use during the but did smoke tobacco regularly. Patient reports she started contractions after her water broke at approximately 6:15 this morning. she has a history of 4 full-term vaginal deliveries, largest is 7 lbs. 14 oz. No complications with any of them. Medical History: Medical History (Last Reviewed 05/28/18 @ 10:11 by Chacha Leal) Anxiety F41.9 Depression F32.9 Surgical History: Surgical History (Last Reviewed 05/28/18 @ 10:11 by Chacha Leal) H/O dilation and curettage Z98.890 Allergies adhesive tape Allergy (Verified 07/28/19 14:06) Rash nalbuphine HCl [From Nubain] Allergy (Verified 07/28/19 14:06) Angioedema sertraline [From Zoloft] Allergy (Unverified 09/25/19 07:33) Other bupropion HCl [From Wellbutrin] Adverse Reaction (Verified 07/28/19 14:06) PSYCHOTIC EPISODES paroxetine [From Paxil] Adverse Reaction (Verified 07/28/19 14:06) DIZZINESS paper tape Allergy (Uncoded 07/28/19 14:06) Rash Home Medications: Home Medications Pnv No.95/Ferrous Fum/Folic AC [ Caplet] 1 ea PO DAILY 06/11/19 Smoking Status: Heavy Smoker (>10/day) Alcohol: None Number of Fetus(es): 1 History Past Pregnancies: Past Pregnancies Delivery Date Name GA/ Weeks Outcome Route Wt Infant Sex Labor Length Anesthesia Delivery Location Provider FOB Expected Infant Delivery Method: Spontaneous Vaginal Review of Systems Constitutional: Denies: Chills, Fever Eyes: Denies: Blurred vision HEENT: Denies: Head Aches Cardiovascular: Denies: Chest Pain, Light Headedness Respiratory: Denies: Cough, Shortness of Breath Gynecological: Denies: Vaginal discharge, Vaginal itching Neurological: Denies: Blurred vision, Double vision, Change in Speech Hematologic/ Lymphatic: Denies: Anemia Physical Exam General: Alert, Cooperative, No apparent distress Abdomen: Soft, Non Tender, Non-Distended, Gravid, - - large for gestational age. Extremities:: Other - edema 1+. Neurological: Cranial nerves II-XII grossly intact, Deep Tendon Reflexes 2+/4 and Symmetrical [employer]: Normal external genitalia Estimated gestational size: Appropriate for gestational size Presentation: Cephalic Assessment/Plan All Active Problems (Last Reviewed 05/28/18 @ 10:11 by Chacha Leal) 28 weeks gestation of (Acute) Back pain (Acute) Multiparous (Acute) URI (upper respiratory infection) (Acute) Bronchitis (Acute) Contraception management (Acute) Previous child with anomaly, antepartum (Acute) Supervision of high-risk (Acute) Anxiety during (Acute) Trauma (Resolved) This is a 29 year-old, 9 para 4 at 36-3/7 weeks with spontaneous rupture membranes and labor. Estimated weight is less than 4500 g clinically and by ultrasound last week, and pelvis is likely adequate expect vaginal delivery. May have epidural as needed. Rapid group B strep is pending. May have epidural, nitrous oxide as needed for pain control in labor.
[2019-09-25] MEDS: fentaNYL-bupivacaine (epidural) 100 ML BAG EPIDURAL (09:10)
[2019-09-25] MEDS: Ondansetron 4 MG/2 ML Vial IV (09:36)
[2019-09-25 10:49] LABS: Group B Strep DNA By PCR Negative (Negative); Internal Control PASS; Specimen Processing Control PASS
[2019-09-25 10:50] LABS: Probe Check PASS
[2019-09-25] MEDS: Oxytocin 30 units/NS 500 ml 30 UNITS/500 ML IV.SOLN 334 UNITS IV (11:19)
--- NOTE | 2019-09-25 11:33 | OP.PCM_ITS ---
Vaginal Delivery Maternal Presentation: Active Labor Amniotic Membrane Rupture Type: Spontaneous at home Amniotic Fluid Description: Clear Final ROBBIN: 10/20/19 Gestational age: 36 Weeks and 3 Days Date of Procedure: 09/25/19 Pre-Operative Diagnosis: 36 weeks, labor Post-Operative Diagnosis: same Surgery/ Procedure Performed: Spontaneous Vaginal Delivery Type of Anesthesia: Epidural Description of Procedure: A vigorous male infant was delivered DAMION over an intact perineum. The rem ainder the infant was delivered with maternal pushing and gentle traction only in less than 15 seconds. The Pitocin infusion was initiated for active management of the third stage. The cord was clamped and cut [after 1 minute]. The was attended to by the waiting nursing staff. The placenta was delivered spontaneously and intact. The cervix and vagina were intact. Sponge and needle counts were correct. A vaginal sweep was completed by me. Presentation: DAMION Placental Delivery Description: Spontaneous Placenta Disposition: [facility] Cord Vessel Description: 3 Vessels Estimated Blood Loss: 250 Infant A gender: Male Episiotomy Description: None Laceration: 1st degree - perineal abrasion, small and hemostatic Medications given after delivery: IV Pitocin Complications: None
[2019-09-25] MEDS: Naproxen 250 MG Tablet 500 MG PO ×2 (12:33→21:40)
[2019-09-25] MEDS: 0.9% Saline Lock 10 ML Syringe IV (13:28)
[2019-09-25] MEDS: Acetaminophen 500 MG Tablet 1000 MG PO (18:12)
[2019-09-26 00:50] VITALS: BP 104/59; PULSE 79; RESP 16; TEMP 36.6
[2019-09-26 03:45] VITALS: BP 101/51; PULSE 62; RESP 14; TEMP 37.1
--- NOTE | 2019-09-26 07:55 | PN.OBGYN_ITS ---
Subjective: Patient seen at bedside, doing well. Patient reports good pain control. Mild lochia. Voiding without difficulty. Bottlefeeding patient requesting DC home today. - Physical Exam Vitals/I&O's: Vital Signs Temp Pulse Resp BP 98.7 F 62 14 101/51 L 09/26/19 03:45 09/26/19 03:45 09/26/19 03:45 09/26/19 03:45 Oxygen Delivery Method Room Air Weight: 102.1 kg Body Mass Index (BMI) 38.6 Intake and Output for Last 24 Hours 09/24/19 09/25/19 09/26/19 23:59 23:59 23:59 Intake Total 1584.17 / 1584.17 Output Total 500 / 500 Balance 1084.17 / 1084.17 General: Alert, Oriented x3 Abdomen: Soft, Non-Distended, - - fundus firm Extremities: No Calf Tenderness Laboratory Results 09/25/19 07:45: WBC 21.8 H, RBC 4.17 L, Hgb 11.5 L, Hct 36.1 L, MCV 86.6, MCH 27.6, MCHC 31.9 L, RDW Std Deviation 40.7, RDW Coeff of Red 12.9, Plt Count 411, MPV 9.4, Immature Gran % (Auto) 0.700, Neut % (Auto) 76.4 H, Lymph % (Auto) 15.1 L, [place] % (Auto) 6.5, Eos % (Auto) 0.9, Baso % (Auto) 0.4, Absolute Neuts (auto) 16.7 H, Absolute Lymphs (auto) 3.29, Nucleated RBC % 0 09/25/19 07:45: Blood Type A POSITIVE, Antibody Screen NEGATIVE 09/25/19 07:55: Group B Strep DNA Negative, Specimen Comment Not Reportable Current Medications Acetaminophen (Tylenol) 1,000 mg PO Q8H PRN PRN PRN Reason: Pain Score 1-3/10 Last Admin: 09/25/19 18:12 Dose: 1,000 mg Documented by: Bisacodyl (Dulcolax) 10 mg RECTAL UD PRN PRN Reason: If no BM Dibucaine (Dibucaine) 1 applic TOPICAL TID PRN PRN; Protocol PRN Reason: Discomfort Hydrocortisone (Hytone) 1 applic TOPICAL TID PRN PRN; Protocol PRN Reason: Discomfort Methylergonovine Maleate (Methergine) 0.2 mg IM X1 PRN PRN Reason: Excess bleeding/uterine atony Naproxen (Naprosyn) 500 mg PO Q8H PRN PRN PRN Reason: Pain Score 1-3/10 Last Admin: 09/25/19 21:40 Dose: 500 mg Documented by: Ondansetron HCl (Zofran) 4 mg IV Q4H PRN PRN PRN Reason: Nausea Prochlorperazine Edisylate (Compazine Iv) 10 mg IV Q6H PRN PRN PRN Reason: NAUSEA/VOMITING Senna/Docusate Sodium (Senokot-S, Angela-Colace) 1 - 2 tablet PO DAILY PRN PRN PRN Reason: Constipation Simethicone (Mylicon) 80 mg PO PCHS PRN PRN Reason: Indigestion/Stomach pain Sodium Chloride () 5 - 15 ml IV UD PRN PRN Reason: SALINE FLUSH Last Admin: 09/25/19 13:28 Dose: 10 ml Documented by: Medical Necessity - Tobacco Use Smoking Status: Heavy Smoker (>10/day) Assessment/Plan All Active Problems (Last Reviewed 05/28/18 @ 10:11 by Chacha Lela) 28 weeks gestation of (Acute) Back pain (Acute) Multiparous (Acute) URI (upper respiratory infection) (Acute) Bronchitis (Acute) Contraception management (Acute) Previous child with anomaly, antepartum (Acute) Supervision of high-risk (Acute) Anxiety during (Acute) Trauma (Resolved) PD #1, doing well Routine care Ambulation DC home
--- NOTE | 2019-09-26 07:59 | DCINST_ITS ---
Discharge Diet: No Restrictions Discharge Activity: Return to Normal Activity, May not drive while taking narcotic pain medications., May Shower May resume sexual activity in: 4-6 weeks Additional Activity Instructions:: Nothing in the vagina for 4-6 weeks. You may return to work/school in 6 weeks. Call your doctor if your incision/area has: Continuous Slow Oozing, Sudden Increased Bleeding, Increased Pain/ Swelling, Increased Redness, Foul Smelling Discharge Additional Instructions: If you experience any of the following, contact your healthcare provider. * Bleeding that soaks a pad every hour for 2 hours * Fever 100.4 or higher * Unrelieved incision or abdominal pain * Swelling, redness, discharge or bleeding from your incision or episiotomy site * Your incision begins to separate * Problems urinating (including inability to urinate or burning while urinating). * Visual changes * Severe headache * Flu-like symptoms * Pain or redness in one of both of your breasts * Pain, warmth, tenderness or swelling in your legs, especially the calf area * Frequent nausea and vomiting * Symptoms of depression or anxiety If you experience any of the following, call 911 or go to the nearest Emergency Room. * Chest pain * Problems breathing * Seizure activity * Partial or complete paralysis of a body part, slurred speech, weakness or drooping of the face, or a sudden inability to walk or hold your balance Allergies/Adverse Reactions: Allergies adhesive tape Allergy (Verified 09/25/19 09:35) Rash nalbuphine HCl [From Nubain] Allergy (Verified 09/25/19 09:35) Angioedema sertraline [From Zoloft] Allergy (Verified 09/25/19 09:35) Other bupropion HCl [From Wellbutrin] Adverse Reaction (Verified 09/25/19 09:35) PSYCHOTIC EPISODES paroxetine [From Paxil] Adverse Reaction (Verified 09/25/19 09:35) DIZZINESS paper tape Allergy (Uncoded 09/25/19 09:35) Rash Medications to take at Discharge Pnv No.95/Ferrous Fum/Folic AC [ Caplet] 1 ea PO DAILY 06/11/19 Naproxen [Naprosyn] 500 mg PO Q8H PRN PRN #30 tab 09/26/19 The following prescriptions were given: Naproxen [Naprosyn] 500 mg PO Q8H PRN PRN #30 tab PRN Reason: Pain Score 1-09/30 Transmission Status: Sent to [facility] [place] Please Follow Up With: Ashley Dunn MD When: Call to make an appointment with your doctor in 1-2 and then at 6 weeks. If you had elevated Blood Pressure or 4th degree laceration you will need to be seen in 2 weeks. Primary Care Physician: Care Physician,No Primary [Primary Care Provider] - Test Results: Test results from this visit will be discussed in further detail at your follow- up appointment, if applicable.
[2019-09-26 08:10] VITALS: BP 133/79; PULSE 83; RESP 18; TEMP 36.1
[2019-09-26 14:30] VITALS: BP 120/78; PULSE 100; RESP 18; TEMP 36.6
== END 2019-09-26 15:15 | disposition home or self-care (01) | DRG 560 ==
LOC: WPOUT 07:35 → WP 07:35 → WPOUT 07:36 → WP 07:36
PROVIDERS: Obstetrics & Gynecology; Admitting Provider Obstetrics & Gynecology; Referring Provider Obstetrics & Gynecology; Visit Provider Obstetrics & Gynecology
DX: O60.14X0 Preterm labor third trimester with preterm delivery third trimester, not applicable or unspecified (principal); O40.3XX0 Polyhydramnios, third trimester, not applicable or unspecified; O36.63X0 Maternal care for excessive fetal growth, third trimester, not applicable or unspecified; O99.214 Obesity complicating childbirth; E66.01 Morbid (severe) obesity due to excess calories; O99.334 Smoking (tobacco) complicating childbirth; F17.200 Nicotine dependence, unspecified, uncomplicated; Z3A.36 36 weeks gestation of pregnancy; Z37.0 Single live birth
CPT/HCPCS: 59025; 59050; 85025; 86850; 86900; 86901; 87081; 87653; 99218; J7120; A4216; G0378; J2405

== ENCOUNTER 2019-10-01 17:14 | Outpatient (CLI) | payer MEDICAID, SELFPAY ==
[2019-09-25 07:32] VITALS: BMI 38.6
[2019-10-01] VITALS (14 sets, daily range): BP systolic 138–175; BP diastolic 73–88; PULSE 56–67; TEMP 36.7; BMI 39.4
[2019-10-01 17:57] LABS: Hematocrit 34.3 % (37-47); Hemoglobin 10.8 g/dL (12.0-15.0); Mean Corp Hgb Conc 31.5 g/dL (32-36); Mean Corpuscular Hgb 27.2 pg (27.0-32.0); Mean Corpuscular Volume 86.4 fL (81-99); Mean Platelet Vol. 9.2 fl (6.2-12.0); Platelet Count 402 K/mm3 (150-450); RBC Distribution Width SD 40.7 fl (35.1-43.9); Red Blood Count 3.97 M/mm3 (4.2-5.4); White Blood Count 11.1 K/mm3 (4.4-11.0)
[2019-10-01 18:07] LABS: Prothrombin Time (Protime)PT. 12.8 SECONDS (11.7-14.9)
[2019-10-01 18:08] LABS: Partial Thromboplast Time 26.5 Seconds (24.1-36.2)
[2019-10-01 18:28] LABS: AST(SGOT) 17 U/L (15-37); Alanine Aminotransfer ALT/SGPT 30 U/L (13-56); Creatinine, Serum 0.78 mg/dL (0.55-1.02); EST Glomerular Filtration Rate 92 mL/min (>60); Est Glom Filt Rate - Afr Amer 111 mL/min (>60); Uric Acid 7.3 mg/dL (2.6-6.0)
--- NOTE | 2019-10-01 19:03 | NURSING ---
on the floor and has reviewed the pt's labs and vital signs. is in and talking to the pt now.
--- NOTE | 2019-10-01 19:09 | PCM.HP.OB ---
History Date of Admission: 10/01/19 Final ROBBIN Source: US <20 weeks History of this : Patient presented to office with LE swelling. She denies headaches or blurry vision. Patient is stressed out. Medical History: Medical History (Last Reviewed 05/28/18 @ 10:11 by Chacha Leal) Anxiety F41.9 Depression F32.9 Surgical History: Surgical History (Last Reviewed 05/28/18 @ 10:11 by Chacha Leal) H/O dilation and curettage Z98.890 Allergies adhesive tape Allergy (Verified 09/25/19 09:35) Rash nalbuphine HCl [From Nubain] Allergy (Verified 09/25/19 09:35) Angioedema sertraline [From Zoloft] Allergy (Verified 09/25/19 09:35) Other bupropion HCl [From Wellbutrin] Adverse Reaction (Verified 09/25/19 09:35) PSYCHOTIC EPISODES paroxetine [From Paxil] Adverse Reaction (Verified 09/25/19 09:35) DIZZINESS paper tape Allergy (Uncoded 09/25/19 09:35) Rash Home Medications: Home Medications Pnv No.95/Ferrous Fum/Folic AC [ Caplet] 1 ea PO DAILY 06/11/19 Naproxen [Naprosyn] 500 mg PO Q8H PRN PRN #30 tab 09/26/19 Smoking Status: Heavy Smoker (>10/day) History Past Pregnancies: Past Pregnancies Delivery Date Name GA/ Weeks Outcome Route Wt Sex Labor Length Anesthesia Delivery Location Provider FOB Physical Exam Vitals: Vital Signs Pulse BP 58 L 159/86 H 10/01/19 19:04 10/01/19 19:04 General: Alert, Oriented x3 Neurological: Cranial nerves II-XII grossly intact - DTR's 1+ per RN, no clonus Assessment/Plan All Active Problems (Last Reviewed 05/28/18 @ 10:11 by Chacha Leal) 28 weeks gestation of (Acute) Back pain (Acute) Multiparous (Acute) URI (upper respiratory infection) (Acute) Bronchitis (Acute) Contraception management (Acute) Previous child with anomaly, antepartum (Acute) Supervision of high-risk (Acute) Anxiety during (Acute) Trauma (Resolved) This is a 29 year-old, 6 days PP with elevated BP Patient with BP's 140's-150's/80's-90's. PreE labs checked & overall normal other than elevated uric acid. As patient with mildly elevated BP's that borderline severe it's recommended that she stay for BP medication. Will start magnesium if BP's become severe. Patient is agreeable to this.
[2019-10-01] MEDS: Labetalol 200 MG Tablet PO (19:24)
--- NOTE | 2019-10-01 20:37 | NURSING ---
called by this RN. updated that bp was 175/85 approximately 30 mins after 200mg labetalol was given. RN discussed elevated bp/pre-e and risks of leaving AMA, pt verbalized understanding. RN encouraged pt to stay for bp recheck but pt declined, she reported being very concerned about her children because she was not able to get a hold of her mother whom was watching them, pt stated she is going to pickle processor her kids and take them to her sisters then would try to come back tonight for treatment. RN encouraged pt to call office tomorrow morning if unable to come back tonight for BP recheck. pt verbalized understanding and stated she would come back if she had more symptoms. pre-e hand out given and pt verbalized understanding. pt left at 1999
== END 2019-10-01 20:00 | disposition home or self-care (01) ==
LOC: WPOUT 17:16 → WP 17:16
PROVIDERS: Referring Provider Obstetrics & Gynecology; Visit Provider Obstetrics & Gynecology
DX: O26.893 Other specified pregnancy related conditions, third trimester (principal); R03.0 Elevated blood-pressure reading, without diagnosis of hypertension; O99.513 Diseases of the respiratory system complicating pregnancy, third trimester; J40 Bronchitis, not specified as acute or chronic; J06.9 Acute upper respiratory infection, unspecified; O99.333 Smoking (tobacco) complicating pregnancy, third trimester; O99.343 Other mental disorders complicating pregnancy, third trimester; F32.9 Major depressive disorder, single episode, unspecified; F41.9 Anxiety disorder, unspecified; Z79.1 Long term (current) use of non-steroidal anti-inflammatories (NSAID); Z3A.28 28 weeks gestation of pregnancy
CPT/HCPCS: 36415; 82565; 84450; 84460; 84550; 85027; 85610; 85730; 99218; G0378

== ENCOUNTER 2019-10-02 09:50 | Outpatient (CLI) | payer MEDICAID, SELFPAY ==
[2019-10-01 19:18] VITALS: BMI 39.4
[2019-10-02] VITALS (31 sets, daily range): BP systolic 130–153; BP diastolic 72–97; PULSE 49–88; RESP 16–18; TEMP 36.3–37.1; O2SAT 93–99; BMI 39.2
[2019-10-02 10:33] LABS: Hematocrit 36.2 % (37-47); Hemoglobin 11.1 g/dL (12.0-15.0); Mean Corp Hgb Conc 30.7 g/dL (32-36); Mean Corpuscular Hgb 26.6 pg (27.0-32.0); Mean Corpuscular Volume 86.8 fL (81-99); Mean Platelet Vol. 9.1 fl (6.2-12.0); Platelet Count 381 K/mm3 (150-450); RBC Distribution Width CV 12.9 % (11.6-14.6); Red Blood Count 4.17 M/mm3 (4.2-5.4); White Blood Count 9.2 K/mm3 (4.4-11.0)
[2019-10-02 10:47] LABS: Prothrombin Time (Protime)PT. 12.5 SECONDS (11.7-14.9)
[2019-10-02 10:48] LABS: AST(SGOT) 20 U/L (15-37); Alanine Aminotransfer ALT/SGPT 28 U/L (13-56); Creatinine, Serum 0.87 mg/dL (0.55-1.02); EST Glomerular Filtration Rate 81 mL/min (>60); Est Glom Filt Rate - Afr Amer 99 mL/min (>60); Estimated Creatinine Clearance 81.65 ml/min
[2019-10-02] MEDS: Magnesium Sulfate 4gm/100mL 4 GM/100 ML IV.SOLN. IV (11:54)
[2019-10-02] MEDS: Lactated Ringers 1,000 ML 15 ML IV (11:54)
[2019-10-02] MEDS: Acetaminophen 500 MG Tablet 1000 MG PO (12:02)
[2019-10-02] MEDS: HYDROmorphone 1 MG/ML Syringe IV (12:02)
[2019-10-02] MEDS: Magnesium Sulfate 4gm/100mL 2 GM/50 ML IV.SOLN. IV (12:15)
[2019-10-02] MEDS: Magnesium Sulfate 20 GM/500 ML BAG IV ×2 (12:26→21:05)
[2019-10-02] MEDS: Labetalol 100 MG Tablet PO (14:56)
[2019-10-02] MEDS: Naproxen 250 MG Tablet PO (19:51)
--- NOTE | 2019-10-02 19:52 | HP.PCM_ITS ---
History and Physical Date of Admission: 10/02/19 29 YOF had a vaginal delivery on 09/25/2019 of a 36-week infant presents complaining of a headache today. She was seen yesterday in the office for headache and had some elevated blood pressures. She was evaluated on labor and delivery and a left against advice. She called this morning complaining of a headache that was 8 out of 10 pain and arrived back for reevaluation. When she arrived, her headache was significant. She denied any epigastric pain. Currently, she states her headache is a 3 out of 10. Its not limiting her activities. She denies any visual disturbances or epigastric pain. She denies any nausea or vomiting. She has had average lochia. Her previous pregnancies h ave not been complicated by hypertension. Medical history, social history and surgical history of been reviewed from her previous admission on 09/25/2019. The remarkable for history of obesity, tobacco use, bipolar disorder, and she had chlamydia and trichomonas early in the . Review of systems: General: No fevers or chills. Complains of just not feeling well. Cardiac: No chest pain or palpitations Respiratory: No shortness of breath or cough Extremities: Significant for edema, complains of same pain with ambulation because of edema. : No dysuria or hematuria Neuro: No visual changes, no abnormal gait or speech Physical exam: General: Awake, alert, no acute distress, sitting up comfortably in bed talking on the phone Abdomen: Soft, nontender, nondistended Lungs: Clear to auscultation bilaterally Heart: Regular rate and rhythm Extremities: 3+ edema, 3+ DTRs, 1 beat of clonus symmetrical, no erythema Assessment and plan 29-year-old female day #7 status post vaginal delivery with preeclampsia with severe features. Headache is better controlled after 1 dose of IV Dilaudid and now on p.o. medications. Continue p.o. medications as needed. If headache significantly worsens, will need to get CT scan. On IV magnesium prophylaxis. Continue this for 24 hours. Repeat labs are ordered in the morning. SCDs ordered for VTE prophylaxis. regular diet bedrest with bathroom privileges
[2019-10-02] MEDS: oxyCODONE 5 MG Tablet PO (21:49)
--- NOTE | 2019-10-02 22:14 | NURSING ---
Dr. Graciela Dunn called into this RN for pt. update. Gave new labetalol order that this RN will enter. Updated on pt's last BP. Continue to monitor.
[2019-10-02] MEDS: Labetalol 200 MG Tablet PO (22:34)
--- NOTE | 2019-10-02 23:47 | NURSING ---
2333: This RN noticed that pt. may have decreased reflexes. Pt. told to relax and second RN in room to assist with assessment. Pt. relaxed and reflexes still 3+ brisk bilaterally.
[2019-10-03] VITALS (42 sets, daily range): BP systolic 122–164; BP diastolic 44–89; PULSE 64–96; RESP 16–18; TEMP 36.2–36.9; O2SAT 91–99
--- NOTE | 2019-10-03 04:57 | NURSING ---
SCD's applied to patient's legs bilaterally at 2146 rounds. Throughout the night patient has occasionally taken SCD's off d/t edema pain or getting up to restroom. This RN encouraged pt. to keep SCD's on as much as possible when in bed to help with circulation and swelling.
[2019-10-03] MEDS: Labetalol 200 MG Tablet PO ×2 (05:48→14:08)
[2019-10-03 06:05] LABS: Hematocrit 35.8 % (37-47); Hemoglobin 11.2 g/dL (12.0-15.0); Mean Corp Hgb Conc 31.3 g/dL (32-36); Mean Corpuscular Hgb 27.3 pg (27.0-32.0); Mean Corpuscular Volume 87.1 fL (81-99); Platelet Count 376 K/mm3 (150-450); RBC Distribution Width SD 41.3 fl (35.1-43.9); Red Blood Count 4.11 M/mm3 (4.2-5.4)
[2019-10-03 06:27] LABS: ALB/GLOB Ratio 0.6 RATIO (0.9-2.4); AST(SGOT) 11 U/L (15-37); Alanine Aminotransfer ALT/SGPT 26 U/L (13-56); Albumin, Serum 2.5 g/dL (3.2-5.0); Alkaline Phosphatase 118 U/L (45-117); Anion Gap 7 (5-15); BUN 10 mg/dL (7-18); Calcium,Total 6.9 mg/dL (8.5-10.1); Chloride 107 mmol/L (98-107); Creatinine, Serum 0.77 mg/dL (0.55-1.02); EST Glomerular Filtration Rate 93 mL/min (>60); Est Glom Filt Rate - Afr Amer 113 mL/min (>60); Estimated Creatinine Clearance 92.25 ml/min; Globulin 3.9 g/dL (2.2-4.2); Glucose 96 mg/dL (74-106); Potassium 3.1 mmol/L (3.5-5.1); Protein, Total 6.4 g/dL (6.4-8.2); Sodium Level 142 mmol/L (136-145)
--- NOTE | 2019-10-03 06:30 | NURSING ---
Dr. Dunn informed of pt's potassium level of 3.1 and calcium level of 6.9. Dr. Dunn will be in to see pt. this morning. No orders given at this time.
[2019-10-03] MEDS: Magnesium Sulfate 20 GM/500 ML BAG IV (06:43)
--- NOTE | 2019-10-03 09:26 | PCM.PN.OB ---
Subjective: Patient doing well this morning. She has some blurred vision. Denies any headaches, epigastric pain, right upper quadrant pain, nausea, vomiting. - Physical Exam Vitals/I&O's: Vital Signs Temp Pulse Resp BP Pulse Ox 98.0 F 82 18 137/84 H 99 10/03/19 08:43 10/03/19 08:44 10/03/19 08:43 10/03/19 08:44 10/03/19 08:43 Oxygen Flow Rate (L/min) 0 Oxygen Delivery Method Room Air Weight: 228 lb 13.437 oz Body Mass Index (BMI) 39.2 Intake and Output for Last 24 Hours 10/01/19 10/02/19 10/03/19 23:59 23:59 23:59 Intake Total 2080.58 / 2080.58 891.09 / 891.09 Output Total 1949 / 1949 1650 / 1650 Balance 130.58 / 130.58 -758.91 / -758.91 General: Alert, No apparent distress HEENT: Atraumatic Abdomen: Soft, Non Tender, Non-Distended Extremities: No Calf Tenderness, Edema Skin: No rashes Neurological: Neuro grossly intact, - - DTR 3+ bilaterally Psych/Mental Status: Normal Affect, Appropriate Laboratory Results 10/02/19 10:20: WBC 9.2, RBC 4.17 L, Hgb 11.1 L, Hct 36.2 L, MCV 86.8, MCH 26.6 L, MCHC 30.7 L, RDW Std Deviation 41.0, RDW Coeff of Red 12.9, Plt Count 381, MPV 9.1 10/02/19 10:20: PT 12.5, INR 1.0, APTT 27.0 10/02/19 10:20: Creatinine 0.87, Estim Creat Clear Calc 81.65, Est GFR (MDRD) Af Amer 99, Est GFR (MDRD) Non-Af 81, Uric Acid 8.0 H, AST 20, ALT 28 10/03/19 05:55: WBC 9.0, RBC 4.11 L, Hgb 11.2 L, Hct 35.8 L, MCV 87.1, MCH 27.3, MCHC 31.3 L, RDW Std Deviation 41.3, RDW Coeff of Red 13.0, Plt Count 376, MPV 9.0 10/03/19 05:55: Sodium 142, Potassium 3.1 L, Chloride 107, Carbon Dioxide 28.0, Anion Gap 7, BUN 10, Creatinine 0.77, Estim Creat Clear Calc 92.25, Est GFR (MDRD) Af Amer 113, Est GFR (MDRD) Non-Af 93, BUN/Creatinine Ratio 13.0, Glucose 96, Calcium 6.9 L, Total Bilirubin 0.30, AST 11 L, ALT 26, Alkaline Phosphatase 118 H, Total Protein 6.4, Albumin 2.5 L, Globulin 3.9, Albumin/Globulin Ratio 0.6 L Current Medications Acetaminophen (Tylenol) 1,000 mg PO Q8H PRN PRN PRN Reason: Pain score 1-3/10 or fever Calcium Gluconate 1 gm/ N/A 10 mls @ 2 mls/min IV X1 PRN PRN Reason: Magnesium Toxicity Magnesium Sulfate (20gm/500ml) 20 gm in 500 mls @ 50 mls/hr IV .Q10H [facility]; Protocol Stop: 10/03/19 12:00 Last Infusion: 10/03/19 08:43 Dose: 2 gm/hr, 50 mls/hr Documented by: Lactated Ringer's () 1,000 mls @ 15 mls/hr IV .Q48H [facility] Last Infusion: 10/03/19 05:44 Dose: 15 mls/hr Documented by: Labetalol HCl (Trandate) 200 mg PO TID [facility] Last Admin: 10/03/19 05:48 Dose: 200 mg Documented by: Midazolam HCl (Versed) 2 mg IV X1 PRN PRN Reason: Seizure Activity Naproxen (Naprosyn) 250 - 500 mg PO Q8H PRN PRN PRN Reason: Pain Score 1-3/10 Last Admin: 10/02/19 19:51 Dose: 500 mg Documented by: Ondansetron HCl (Zofran) 4 mg IV Q4H PRN PRN PRN Reason: NAUSEA Oxycodone HCl (Oxyir) 5 - 10 mg PO Q4H PRN PRN PRN Reason: Pain Score 4-10/10 Last Admin: 10/02/19 21:49 Dose: 5 mg Documented by: Potassium Chloride (K-Dur) 40 meq PO BIDCM [facility] Prochlorperazine Edisylate (Compazine Iv) 10 mg IV Q6H PRN PRN PRN Reason: NAUSEA Sodium Chloride () 10 ml IV PRN PRN PRN Reason: SALINE FLUSH Medical Necessity - Tobacco Use Smoking Status: Heavy Smoker (>10/day) Assessment/Plan All Active Problems (Last Reviewed 05/28/18 @ 10:11 by Chacha Leal) 28 weeks gestation of (Acute) Back pain (Acute) Multiparous (Acute) URI (upper respiratory infection) (Acute) Bronchitis (Acute) Contraception management (Acute) Previous child with anomaly, antepartum (Acute) Supervision of high-risk (Acute) Anxiety during (Acute) Trauma (Resolved) Patient is hospital day 2 for her admission for preeclampsia. -Continue mag GTT for seizure prophylaxis for 24 hours -Blood pressures are currently controlled with oral labetalol -Patient's headache has resolved. She does have some blurred vision this morning. Discussed possible head CT scan if her blurred vision does not resolve once the mag GTT is stopped -May need additional BP medication once mag gtt is stopped -Labs reviewed this morning -Dispo: Anticipated discharge tomorrow. Discussed with patient importance of hospital stay. Reviewed risk of stroke, seizure, if she goes home today.
--- NOTE | 2019-10-03 09:27 | NURSING ---
RN at bedside with Dr Aguilar and Harmony ASTORGA. POC discussed, pt tearful with plan to stay possibly through tomorrow but states she understands why. Is c/o blurred vision at this time, is aware. No new orders. Pt to notify if still having blurred vision after magnesium is dc'd. Plan for magnesium to come off at 1200. Order to continue Q1 hour BP's for 4 hours after mag is stopped to assess patient closely.
[2019-10-03] MEDS: 0.9% Saline Lock 10 ML Syringe IV (11:55)
--- NOTE | 2019-10-03 12:00 | NURSING ---
RN gave verbal instruction and written letter from [facility] to patient regarding coronavirus and precautions being implemented. pt verbalizes understanding.
--- NOTE | 2019-10-03 12:50 | PCM.PN.BLA ---
Progress Note Doing well. Blurred vision has resolved since the mag drip has been stopped. She denies any headache, vision changes, right upper quadrant pain, epigastric pain. Blood pressures are in the 150s over 90s. Will start Procardia 30 mg XL. Reviewed possible side effects of Procardia. Discussed plan with patient and reviewed importance of staying at the hospital overnight tonight patient. Patient is agreeable to this plan. She understands if she leaves the hospital today she is at risk for stroke, seizure, . STROKE Vital Signs/Narrative: Vital Signs Temp Pulse Resp BP Pulse Ox 10/03/19 11:50 98.4 F 75 18 150/83 H 94 10/03/19 11:48 76 150/83 H 95 10/03/19 10:42 73 135/75 H 96 10/03/19 10:40 73 18 135/75 H 97 10/03/19 09:47 78 146/86 H 10/03/19 09:45 98.0 F 75 18 146/86 H 99
[2019-10-03] MEDS: NIFEdipine 30 MG Tablet PO (13:27)
[2019-10-03] MEDS: Acetaminophen 500 MG Tablet 1000 MG PO (13:27)
[2019-10-03] MEDS: oxyCODONE 5 MG Tablet PO (15:57)
--- NOTE | 2019-10-03 16:56 | NURSING ---
patient states she believes her headache is from caffiene withdraw, rn will get pt a coke
--- NOTE | 2019-10-03 17:51 | NURSING ---
dr piedra at bedside to discuss poc with pt. answering pt questions. plan for CT tonight
--- NOTE | 2019-10-03 17:52 | NURSING ---
order for Q4 hour VS check for remainder of stay
--- NOTE | 2019-10-03 17:55 | PCM.PN.BLA ---
Progress Note At bedside to examine patient. She has a persistent headache. She was given Tylenol as well as Dilaudid, and her headache is still persisting. Denies any vision changes, right upper quadrant pain, epigastric pain, nausea, vomiting. Limited neuro exam within normal limits. No focal deficits on neuro exam. Given persistent headache in the setting of preeclampsia and elevated blood pressures, discussed CAT scan of head with patient. She is agreeable and CAT scan of head was ordered. Will also increase her labetalol to 300 mg 3 times daily. STROKE Vital Signs/Narrative: Vital Signs Temp Pulse Resp BP BP Pulse Ox 10/03/19 17:54 71 140/73 H 10/03/19 16:55 70 149/78 H 10/03/19 16:54 98.3 F 80 18 164/83 H 148/78 H 10/03/19 15:52 73 154/84 H 10/03/19 15:51 73 154/84 H 10/03/19 15:00 75 136/81 H 10/03/19 14:59 73 136/81 H 10/03/19 14:07 71 149/83 H 10/03/19 14:06 77 18 149/83 H 97
--- NOTE | 2019-10-03 17:58 | CT_ITS ---
STUDY: CT BRAIN WITHOUT CONTRAST REASON FOR EXAM: Female, 29 years old. pre-eclampsia, persistent headache, no vision changes currently. No prior history of hypertension. RADIATION DOSAGE (If Supplied By Facility): CTDIvol = ( 44.99 ) mGy, DLP = ( 745.49 ) mGycm TECHNIQUE: Transaxial CT imaging of the brain was performed without administration of intravenous contrast material. Individualized dose optimization techniques were used for this CT. COMPARISON: No relevant priors. FINDINGS: Normal soft tissue structures. Normal calvarium. Normal size ventricles and extra-axial spaces for the patient''s age. Normal white matter tracts of the cerebral hemispheres. Normal basal ganglia and thalami. Normal brainstem. Normal cerebellum. There is no intracranial hemorrhage. There are no findings of an acute ischemic infarction. Mild mucosal thickening of the paranasal sinuses. CT/Brain/Head without Contrast IMPRESSION: No acute intracranial pathology of the brain. Mild paranasal sinus disease. Electronically Signed: Jose Ordonez DO at 19:17 EDT Tel [phone], Service support ,
[2019-10-03] MEDS: Labetalol 200 MG Tablet 300 MG PO (21:31)
[2019-10-04] VITALS (7 sets, daily range): BP systolic 123–141; BP diastolic 64–82; PULSE 80–90; RESP 16–18; TEMP 36.7–37.1; O2SAT 97
[2019-10-04] MEDS: Labetalol 200 MG Tablet 300 MG PO (06:38)
--- NOTE | 2019-10-04 09:11 | PN.OBGYN_ITS ---
Subjective: Doing well. She denies headache, vision changes, right upper quadrant pain, epigastric pain, nausea, vomiting. She feels well and desires to go home today. She denies chest pain, shortness of breath, leg pain. - Physical Exam Vitals/I&O's: Vital Signs Temp Pulse Resp BP Pulse Ox 98.4 F 89 16 123/64 H 97 10/04/19 07:38 10/04/19 07:38 10/04/19 07:38 10/04/19 07:38 10/04/19 07:38 Oxygen Flow Rate (L/min) 0 Oxygen Delivery Method Room Air Weight: 228 lb 13.437 oz Body Mass Index (BMI) 39.2 Intake and Output for Last 24 Hours 10/02/19 10/03/19 10/04/19 23:59 23:59 23:59 Intake Total 2080.58 / 2080.58 2323.84 / 2323.84 Output Total 1950 / 1950 1850 / 1850 Balance 130.58 / 130.58 473.84 / 473.84 General: Alert, No apparent distress HEENT: Atraumatic Abdomen: Soft, Non Tender, - - FF@U-2 Extremities: No Calf Tenderness, Edema Skin: No rashes Neurological: Deep Tendon Reflexes 2+/4 and Symmetrical, Neuro grossly intact Psych/Mental Status: Normal Affect, Appropriate Current Medications Acetaminophen (Tylenol) 1,000 mg PO Q8H PRN PRN PRN Reason: Pain score 1-3/10 or fever Last Admin: 10/03/19 13:27 Dose: 1,000 mg Documented by: Calcium Gluconate 1 gm/ N/A 10 mls @ 2 mls/min IV X1 PRN PRN Reason: Magnesium Toxicity Lactated Ringer's () 1,000 mls @ 15 mls/hr IV .Q48H [facility] Last Infusion: 10/03/19 11:55 Dose: Infused Documented by: Labetalol HCl (Trandate) 300 mg PO TID [facility] Last Admin: 10/04/19 06:38 Dose: 300 mg Documented by: Midazolam HCl (Versed) 2 mg IV X1 PRN PRN Reason: Seizure Activity Naproxen (Naprosyn) 250 - 500 mg PO Q8H PRN PRN PRN Reason: Pain Score 1-3/10 Last Admin: 10/02/19 19:51 Dose: 500 mg Documented by: Nifedipine (Procardia Xl) 30 mg PO DAILY [facility] Last Admin: 10/03/19 13:27 Dose: 30 mg Documented by: Ondansetron HCl (Zofran) 4 mg IV Q4H PRN PRN PRN Reason: NAUSEA Oxycodone HCl (Oxyir) 5 - 10 mg PO Q4H PRN PRN PRN Reason: Pain Score 4-10/10 Last Admin: 10/03/19 15:57 Dose: 5 mg Documented by: Potassium Chloride (K-Dur) 40 meq PO BIDCM [facility] Last Admin: 10/04/19 07:50 Dose: 40 meq Documented by: Prochlorperazine Edisylate (Compazine Iv) 10 mg IV Q6H PRN PRN PRN Reason: NAUSEA Sodium Chloride () 10 ml IV PRN PRN PRN Reason: SALINE FLUSH Last Admin: 10/03/19 11:55 Dose: 10 ml Documented by: Medical Necessity - Tobacco Use Smoking Status: Heavy Smoker (>10/day) Assessment/Plan All Active Problems (Last Reviewed 05/28/18 @ 10:11 by Chacha Leal) 28 weeks gestation of (Acute) Back pain (Acute) Multiparous (Acute) URI (upper respiratory infection) (Acute) Bronchitis (Acute) Contraception management (Acute) Previous child with anomaly, antepartum (Acute) Supervision of high-risk (Acute) Anxiety during (Acute) Trauma (Resolved) Patient was readmitted for preeclampsia. - S/p K replacement. Will recheck this AM - S/p 24 hrs of mag gtt for seizure prophylaxis - Currently on labetalol 300 3 times daily and Procardia 30 once daily. Blood pressures are normal - Patient has no symptoms of preeclampsia this morning - Dispo: Discharge home today with follow-up in the office early next week for blood pressure check. Reviewed discharge instructions with patient and when to call. We will give her prescription for blood pressure cuff as well, and instructed her to check her blood pressure at home and reviewed proper use of blood pressure cuff
--- NOTE | 2019-10-04 09:18 | DCINST_ITS ---
You will use the following diet at home:: No restrictions Your food should be the consistency of: Regular Discharge Activity: Return to Normal Activity May resume sexual activity in: 6 weeks Weight Bearing Status: Weight bearing as tolerated Lifting Restrictions: None Call your doctor if you observe: Fever of 101 or Higher, Inability to urinate, Inability to have a bowel movement, Using more than one pad per hour, Shortness of breath, Dizziness, Chest pain, Increased palpitations (irregular heartbeat), Calf discomfort, Uncontrolled pain Instructions: Understanding Preeclampsia Additional Instructions: Check your blood pressure at home as instructed and call if it is equal to or greater than 160/110. Call if you have a headache, vision changes, upper abdominal pain, or if you generally do not feel well. Allergies/Adverse Reactions: Allergies adhesive tape Allergy (Verified 10/01/19 19:35) Rash nalbuphine HCl [From Nubain] Allergy (Verified 10/01/19 19:35) Angioedema sertraline [From Zoloft] Allergy (Verified 10/01/19 19:35) Other bupropion HCl [From Wellbutrin] Adverse Reaction (Verified 10/01/19 19:35) PSYCHOTIC EPISODES paroxetine [From Paxil] Adverse Reaction (Verified 10/01/19 19:35) DIZZINESS paper tape Allergy (Uncoded 10/01/19 19:35) Rash Medications to take at Discharge Labetalol [Trandate (Beta Joselyn)] 300 mg PO TID #60 tab 10/04/19 Nifedipine [Procardia Xl] 30 mg PO DAILY #30 tab.er.24 10/04/19 The following prescriptions were given: Nifedipine [Procardia Xl] 30 mg PO DAILY #30 tab.er.24 Transmission Status: Pending to [facility] #30 Labetalol [Trandate (Beta Joselyn)] 300 mg PO TID #60 tab Transmission Status: Pending to [facility] Primary Care Physician: Care Physician,No Primary [Primary Care Provider] - Test Results: Test results from this visit will be discussed in further detail at your follow- up appointment, if applicable. Please Follow Up With: Erica Aguilar DO When: 1 week for blood pressure check Proposed Discharge Date: 10/04/19
--- NOTE | 2019-10-04 09:21 | DS.PCM_ITS ---
Discharge Date and Diagnosis Date of Admission: 10/02/19 Date of Discharge: 10/04/19 Hospital Course and Treatment Operations: None Procedures: None Summary of Care Provided: The patient is a 29 year old F [] who was readmitted for preeclampsia. She had a vaginal delivery and then on day 6 she developed a headache and elevated blood pressures. She was sent to labor and delivery for further management but she left AGAINST MEDICAL ADVICE. She then later called with a headache and presented to labor and delivery for admission for preeclampsia. She was given 24 hours of magnesium for seizure prophylaxis. Her headache was persistent despite treatment with medication therefore a CAT scan of her head was obtained and negative. She was started on blood pressure medication for control of her blood pressures. On day of discharge her blood pressures were normal, and she had no symptoms of preeclampsia. She was discharged home in good condition with follow-up in the office for blood pressure check. - Physical Exam Vitals/I&O's: Vital Signs Temp Pulse Resp BP Pulse Ox 98.4 F 89 16 123/64 H 97 10/04/19 07:38 10/04/19 07:38 10/04/19 07:38 10/04/19 07:38 10/04/19 07:38 Oxygen Flow Rate (L/min) 0 Oxygen Delivery Method Room Air Weight: 228 lb 13.437 oz Body Mass Index (BMI) 39.2 Intake and Output for Last 24 Hours 10/02/19 10/03/19 10/04/19 23:59 23:59 23:59 Intake Total 2080.58 / 2080.58 2323.84 / 2323.84 Output Total 1950 / 1950 1850 / 1850 Balance 130.58 / 130.58 473.84 / 473.84 Current Medications Acetaminophen (Tylenol) 1,000 mg PO Q8H PRN PRN PRN Reason: Pain score 1-3/10 or fever Last Admin: 10/03/19 13:27 Dose: 1,000 mg Documented by: Calcium Gluconate 1 gm/ N/A 10 mls @ 2 mls/min IV X1 PRN PRN Reason: Magnesium Toxicity Lactated Ringer's () 1,000 mls @ 15 mls/hr IV .Q48H [facility] Last Infusion: 10/03/19 11:55 Dose: Infused Documented by: Labetalol HCl (Trandate) 300 mg PO TID [facility] Last Admin: 10/04/19 06:38 Dose: 300 mg Documented by: Midazolam HCl (Versed) 2 mg IV X1 PRN PRN Reason: Seizure Activity Naproxen (Naprosyn) 250 - 500 mg PO Q8H PRN PRN PRN Reason: Pain Score 1-3/10 Last Admin: 10/02/19 19:51 Dose: 500 mg Documented by: Nifedipine (Procardia Xl) 30 mg PO DAILY [facility] Last Admin: 10/03/19 13:27 Dose: 30 mg Documented by: Ondansetron HCl (Zofran) 4 mg IV Q4H PRN PRN PRN Reason: NAUSEA Oxycodone HCl (Oxyir) 5 - 10 mg PO Q4H PRN PRN PRN Reason: Pain Score 4-1010 Last Admin: 10/03/19 15:57 Dose: 5 mg Documented by: [facility] Admin: 10/04/19 07:50 Dose: 40 meq Documented by: Prochlorperazine Edisylate (Compazine Iv) 10 mg IV Q6H PRN PRN PRN Reason: NAUSEA Sodium Chloride () 10 ml IV PRN PRN PRN Reason: SALINE FLUSH Last Admin: 10/03/19 11:55 Dose: 10 ml Documented by: Discharge Activity: Return to Normal Activity May resume sexual activity in: 6 weeks Weight Bearing Status: Weight bearing as tolerated Call your doctor if you observe: Fever of 101 or Higher, Inability to urinate, Inability to have a bowel movement, Using more than one pad per hour, Shortness of breath, Dizziness, Chest pain, Increased palpitations (irregular heartbeat), Calf discomfort, Uncontrolled pain Home Medications: Medications to take at Discharge Labetalol [Trandate (Beta Joselyn)] 300 mg PO TID #60 tab 10/04/19 Nifedipine [Procardia Xl] 30 mg PO DAILY #30 tab.er.24 10/04/19 Following Prescrptions Were Given to Patient: Nifedipine [Procardia Xl] 30 mg PO DAILY #30 tab.er.24 Transmission Status: Pending to [facility] #30 Labetalol [Trandate (Beta Joselyn)] 300 mg PO TID #60 tab Transmission Status: Pending to [facility] #30 Other Amb Orders: AMB Blood Pressure Monitor [[facility]] Location: None Selected Primary Care Physician: Care Physician,No Primary [Primary Care Provider] - Please Follow Up With: Erica Aguilar DO When: 1 week for blood pressure check Patient Instructions: Understanding Preeclampsia Medical Necessity - Tobacco Use Smoking Status: Heavy Smoker (>10/day) Meaningful Use Info Meaningful Use Diagnoses (Choose all that apply): None applicable
[2019-10-04 10:06] LABS: ALB/GLOB Ratio 0.7 RATIO (0.9-2.4); AST(SGOT) 15 U/L (15-37); Alanine Aminotransfer ALT/SGPT 23 U/L (13-56); Albumin, Serum 2.7 g/dL (3.2-5.0); Alkaline Phosphatase 118 U/L (45-117); Anion Gap 5 (5-15); BUN 10 mg/dL (7-18); BUN/Creat Ratio 11.9 RATIO (10-20); Calcium,Total 7.5 mg/dL (8.5-10.1); Chloride 110 mmol/L (98-107); Creatinine, Serum 0.84 mg/dL (0.55-1.02); EST Glomerular Filtration Rate 84 mL/min (>60); Est Glom Filt Rate - Afr Amer 102 mL/min (>60); Estimated Creatinine Clearance 84.56 ml/min; Globulin 3.8 g/dL (2.2-4.2); Glucose 92 mg/dL (74-106); Potassium 3.6 mmol/L (3.5-5.1); Protein, Total 6.5 g/dL (6.4-8.2); Sodium Level 143 mmol/L (136-145)
[2019-10-04] MEDS: NIFEdipine 30 MG Tablet PO (10:11)
== END 2019-10-04 10:20 | disposition home or self-care (01) ==
LOC: WPOUT 09:51 → WP 09:52
PROVIDERS: Obstetrics & Gynecology; Referring Provider Advanced Practice Midwife; Visit Provider Advanced Practice Midwife
DX: O14.15 Severe pre-eclampsia, complicating the puerperium (principal); O99.335 Smoking (tobacco) complicating the puerperium; O99.215 Obesity complicating the puerperium
CPT/HCPCS: 96365; 96366 ×2; 96375; 96376; 36415; 70450; 80053; 82565; 84450; 84460; 84550; 85027; 85610; 85730; 99218; J7120; A4216; G0378

== ENCOUNTER 2020-12-07 19:53 | Outpatient (CLI) | payer MEDICAID, SELFPAY ==
[2019-10-02 10:05] VITALS: BMI 39.2
[2020-12-07 20:33] VITALS: BP 111/69; PULSE 107; PULSE 96; O2SAT 97
[2020-12-07 21:05] VITALS: BMI 39.6
[2020-12-07 21:06] LABS: ROM Internal Control Test YES-OK TO RESULT pt. (Internal QC); ROM Patient Test Negative (Negative)
[2020-12-07 22:56] VITALS: BP 129/73; PULSE 108; PULSE 109; TEMP 37.1; O2SAT 98
--- NOTE | 2020-12-17 13:31 | OB.TRI.PN ---
Progress Notes Date of Service: 12/07/20 Progress Note: Presented with contractions and possible labor and leakage of fluid. No vaginal bleeding. O: FHR 135, moderate, accels, reactive TOCO: Irregular contractions No cervical change Laboratory Studies: Laboratory Tests 12/07/20 Range/Units 20:20 Vag Amniotic Fld Detect Negative (Negative) Assessment & Plan Assessment/Plan (1) False labor: PLAN: Rom plus negative No signs of labor D/C home and follow up outpatient as scheduled
== END 2020-12-07 23:50 | disposition home or self-care (01) ==
LOC: WPOUT 20:00 → WP 20:14
PROVIDERS: Visit Provider Advanced Practice Midwife
DX: O47.9 False labor, unspecified (principal)
CPT/HCPCS: 59025; 59050; 84112; 99218; G0378

== ENCOUNTER 2020-12-11 18:05 | Outpatient (CLI) | payer MEDICAID, SELFPAY ==
[2020-12-11 18:22] VITALS: BP 138/74; PULSE 102
[2020-12-11 18:44] VITALS: TEMP 36.6; BMI 39.3
[2020-12-11 18:49] VITALS: TEMP 37.2
[2020-12-11 19:08] LABS: ROM Internal Control Test YES-OK TO RESULT pt. (Internal QC); ROM Patient Test Negative (Negative)
[2020-12-11 19:35] VITALS: BP 123/57; PULSE 100; TEMP 36.9; O2SAT 98
--- NOTE | 2020-12-12 04:26 | OB.TRI.NOTE ---
HPI - General HPI Narrative EDWARD AUSTIN, is a 30 F @ 37.1 weeks who presents c/o contractions. Maternal Data Information Gestational age: 37.1 PFSH Medical History (Updated 12/12/20 @ 04:[address] Meghana Beach MD) Anxiety Depression Home Medications [id number] [ + Iron] 1 tab PO DAILY 12/07/20 [History Last Taken 12/09/20 21:00] Allergy/AdvReac Type Severity Reaction Status Date / Time adhesive tape Allergy Rash Verified 12/11/20 19:52 nalbuphine HCl [From Nubain] Allergy Angioedema Verified 12/11/20 19:52 sertraline [From Zoloft] Allergy Other Verified 12/11/20 19:52 bupropion HCl AdvReac PSYCHOTIC Verified 12/11/20 19:52 [From Wellbutrin] EPISODES paroxetine [From Paxil] AdvReac DIZZINESS Verified 12/11/20 19:52 paper tape Allergy Mild Rash Uncoded 12/11/20 19:52 Family History Mother Diabetes Surgical History H/O dilation and curettage Social History (Updated 12/21/18 @ 14:02 by Darryl QUEEN, BRET) Smoking Status: Heavy Smoker (>10/day) alcohol intake: never substance use type: does not use caffeine: Yes what type of physical activity do you participate in: none seatbelt use: always do you feel safe at home: Yes additional social history: single- unemployed History 13 Elective abortions Hx Para 4 Spontaneous abortions 9 Hx # Term Pregnancies 4 Ectopic pregnancies Hx # Pregnancies Multiple births # of living children 4 Past Pregnancies Del. 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
== END 2020-12-11 20:00 | disposition home or self-care (01) ==
LOC: WPOUT 18:13 → WP 18:13
PROVIDERS: Visit Provider Obstetrics & Gynecology
DX: O47.1 False labor at or after 37 completed weeks of gestation (principal); O99.333 Smoking (tobacco) complicating pregnancy, third trimester; F17.200 Nicotine dependence, unspecified, uncomplicated; Z3A.37 37 weeks gestation of pregnancy
CPT/HCPCS: 59025; 59050; 84112; 99218; G0378

== ENCOUNTER 2020-12-17 17:04 | Outpatient (CLI) | payer MEDICAID, SELFPAY ==
[2020-12-17 19:48] VITALS: BP 132/82; PULSE 93; TEMP 36.8; O2SAT 97
[2020-12-17 20:04] LABS: Color, Urine Straw (Yellow); Glucose, Dipstick Normal (Normal); Ketone-Dipstick Negative (Negative); Leukocyte Esterase-Dipstick 25 /ul (Negative); Nitrite-Dipstick Negative (Negative); Occult Blood-Urine Negative /ul (Negative); Protein-Dipstick Negative (Negative); Red Blood Cells-Urine 0 SEEN /hpf (0-5); Specific Gravity, Urine 1.015 (1.002-1.030); Urine Bilirubin Dipstick Negative (Negative); Urine Clarity Sl. Cloudy (Clear); Urine Urobilinogen Normal (Normal); Urine pH 6.5 (5.0 - 8.0)
[2020-12-17 20:16] LABS: Amorphous Sediment 2+; Bacteria 2+ /hpf (None Seen); Mucous, Urine 1+ /hpf (<or=2+); Squamous Epithelial Cells - UA 0-5 SEEN /hpf (5-10); Transitional Epithelial - Ur 0-5 SEEN /hpf (0-5); White Blood Cells 0-5 SEEN /hpf (0-5)
--- NOTE | 2020-12-30 08:09 | OB.TRI.HP_ITS ---
HPI - General HPI Narrative EDWARD AUSTIN, is a 30 F who presents to rule out labor. Presents with contractions. no vaginal bleeding. Good movement PFSH PFSH Medical History (Updated 12/25/20 @ 00:00 by Foster Pimentel) Anxiety Depression Pre-eclampsia Home Medications elstpude-yeu-Nb-FA 1 tab PO DAILY 12/07/20 [History Last Taken 12/22/20 08:00] ibuprofen 600 mg PO Q6H PRN PRN #30 tab 12/24/20 [Rx Last Taken Unknown] Allergy/AdvReac Type Severity Reaction Status Date / Time adhesive tape Allergy Rash Verified 12/22/20 23:35 nalbuphine HCl [From Nubain] Allergy Angioedema Verified 12/22/20 23:35 sertraline [From Zoloft] Allergy Other Verified 12/22/20 23:35 bupropion HCl AdvReac PSYCHOTIC Verified 12/22/20 23:35 [From Wellbutrin] EPISODES paroxetine [From Paxil] AdvReac DIZZINESS Verified 12/17/20 17:38 paper tape Allergy Mild Rash Uncoded 12/22/20 23:35 Family History Mother Diabetes Surgical History H/O dilation and curettage Social History (Updated 12/21/18 @ 14:02 by Darrly QUEEN, BRET) Smoking Status: Heavy Smoker (>10/day) alcohol intake: never substance use type: does not use caffeine: Yes what type of physical activity do you participate in: none seatbelt use: always do you feel safe at home: Yes additional social history: single- unemployed History 13 Elective abortions Hx Para 5 Spontaneous abortions 9 Hx # Term Pregnancies 4 Ectopic pregnancies Hx # Pregnancies Multiple births # of living children 4 Past Pregnancies Del. 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
== END 2020-12-17 20:25 | disposition home or self-care (01) ==
LOC: WPOUT 17:05 → WP 17:06
PROVIDERS: Visit Provider Advanced Practice Midwife
DX: O47.9 False labor, unspecified (principal); Z3A.00 Weeks of gestation of pregnancy not specified
CPT/HCPCS: 59025; 59050; 81001; 87086; 87088; 99218; G0378

== ENCOUNTER 2020-12-22 20:50 | Inpatient (IN) | payer MEDICAID, SELFPAY ==
[2020-12-22] VITALS (23 sets, daily range): BP systolic 133–153; BP diastolic 66–91; PULSE 98–118; TEMP 36.3–36.6; O2SAT 91–100; BMI 41.1
[2020-12-22] MEDS: Lactated Ringers 1,000 ML 50 ML IV (21:20)
[2020-12-22] MEDS: Lactated Ringers 500 ML 999 ML IV (21:21)
[2020-12-22 21:38] LABS: Absolute Lymphocyte Count 3.49 X10^3/uL (0.83-4.51); Absolute Neutrophil Count 18.2 X10^3/uL (2.0-7.7); Basophil# 0.07 X10^3/uL; Basophil% 0.3 % (0-1); Eosinophil# 0.25 X10^3/uL; Hematocrit 37.2 % (37-47); Hemoglobin 11.8 g/dL (12.0-15.0); Lymphocyte # 3.49 X10^3/ul (0.83-4.51); Lymphocyte % 14.5 % (19-41); Mean Corp Hgb Conc 31.7 g/dL (32-36); Mean Corpuscular Hgb 28.8 pg (27.0-32.0); Mean Corpuscular Volume 90.7 fL (81-99); Mean Platelet Vol. 9.2 fl (6.2-12.0); Monocyte# 1.81 X10^3/uL; Monocyte% 7.5 % (0-10); NRBC Flagged by Analyzer 0 % (0-5); Neutrophil # 18.24 X10^3/uL (2.7-7.7); POSITIVE DIFFERENTIAL YES; Platelet Count 414 K/mm3 (150-450); RBC Distribution Width CV 13.2 % (11.6-14.6); RBC Distribution Width SD 43.7 fl (35.1-43.9)
[2020-12-22 21:44] LABS: Differential Indicated SCAN CRITERIA MET
[2020-12-22 22:16] LABS: Differential Comment SCANNED
[2020-12-22] MEDS: fentaNYL-bupivacaine (epidural) 100 ML BAG EPIDURAL (22:22)
[2020-12-22] MEDS: Oxytocin 30 units/NS 500 ml 30 UNITS/500 ML IV.SOLN 334 UNITS IV (23:58)
[2020-12-23] VITALS (20 sets, daily range): BP systolic 120–139; BP diastolic 60–84; PULSE 52–111; RESP 16–18; TEMP 36.1–37.1; O2SAT 96–99
--- NOTE | 2020-12-23 00:04 | HP.PCM.OB_ITS ---
HPI - General General Date of Admission: 12/22/20 HPI Narrative EDWARD AUSTIN, is a 30 F @ 38.5 weeks who presents with SROM at home and contractions- found to be 5cm on admission. Maternal Data Information Final ROBBIN: 12/31/20 Final ROBBIN Source: US <20 weeks Gestational age: 38.5 [facility] Medical History (Updated 12/23/20 @ 00:[address] Meghana Beach MD) Anxiety Depression Pre-eclampsia Home Medications [id number] [ + Iron] 1 tab PO DAILY 12/07/20 [History Last Taken 12/22/20 08:00] aspirin 81 mg PO DAILY 12/17/20 [History Last Taken 12/22/20 08:00] Allergy/AdvReac Type Severity Reaction Status Date / Time adhesive tape Allergy Rash Verified 12/22/20 23:35 nalbuphine HCl [From Nubain] Allergy Angioedema Verified 12/22/20 23:35 sertraline [From Zoloft] Allergy Other Verified 12/22/20 23:35 bupropion HCl AdvReac PSYCHOTIC Verified 12/22/20 23:35 [From Wellbutrin] EPISODES paroxetine [From Paxil] AdvReac DIZZINESS Verified 12/17/20 17:38 paper tape Allergy Mild Rash Uncoded 12/22/20 23:35 Family History Mother Diabetes Surgical History H/O dilation and curettage Social History (Updated 12/21/18 @ 14:02 by Darryl QUEEN, PA) Smoking Status: Heavy Smoker (>10/day) alcohol intake: never substance use type: does not use caffeine: Yes what type of physical activity do you participate in: none seatbelt use: always do you feel safe at home: Yes additional social history: single- unemployed History 13 Elective abortions Hx Para 4 Spontaneous abortions 9 Hx # Term Pregnancies 4 Ectopic pregnancies Hx # Pregnancies Multiple births # of living children 4 Past Pregnancies Del. 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 Anibal 40 live - full term Male [place] 04/12/18 Kerri 40 live - full term Vital Signs Vital Signs Vital Signs: 12/22/20 21:02 12/22/20 21:04 12/22/20 21:07 Temperature 97.3 F L Temperature Source Temporal Pulse Rate 101 H 102 H 100 Blood Pressure 144/91 H BP Systolic 144 BP Diastolic 91 Pulse Ox 99 98 12/22/20 21:12 12/22/20 21:16 12/22/20 21:18 Temperature Temperature Source Pulse Rate 98 117 H 111 H Blood Pressure BP Systolic BP Diastolic Pulse Ox 98 91 100 12/22/20 21:23 12/22/20 21:24 12/22/20 22:16 Temperature Temperature Source Pulse Rate 110 H 99 113 H Blood Pressure 139/77 H 153/87 H BP Systolic 139 153 BP Diastolic 77 87 Pulse Ox 99 99 12/22/20 22:21 12/22/20 22:22 12/22/20 22:26 Temperature Temperature Source Pulse Rate 118 H 118 H 115 H Blood Pressure 147/81 H 139/73 H BP Systolic 147 139 BP Diastolic 81 73 Pulse Ox 98 12/22/20 22:27 12/22/20 22:32 12/22/20 22:36 Temperature Temperature Source Pulse Rate 111 H 99 108 H Blood Pressure 133/71 H 136/75 H BP Systolic 133 136 BP Diastolic 71 75 Pulse Ox 98 98 12/22/20 22:37 12/22/20 22:41 12/22/20 22:42 Temperature Temperature Source Pulse Rate 106 H 106 H 102 H Blood Pressure 138/69 H BP Systolic 138 BP Diastolic 69 Pulse Ox 98 98 12/22/20 22:45 12/22/20 22:46 12/22/20 22:47 Temperature 97.8 F Temperature Source Temporal Pulse Rate 100 106 H Blood Pressure 135/70 H BP Systolic 135 BP Diastolic 70 Pulse Ox 98 12/22/20 22:51 12/22/20 23:22 12/23/20 00:03 Temperature Temperature Source Pulse Rate 103 H 106 H 104 H Blood Pressure 137/66 H 138/69 H 139/60 H BP Systolic 137 138 139 BP Diastolic 66 69 60 Pulse Ox Weight Weight: 108.862 kg Body Mass Index (BMI) 41.1 Labs Labs Labs: Blood Type A POSITIVE Antibody Screen NEGATIVE Hct 37.2 % (37-47) Hgb 11.8 g/dL (12.0-15.0) L Pap Smear Positive Obstetrics US Rubella IgG Antibody 202.0 IU/mL Hep Bs Antigen Negative (Negative-) Neisseria gonorrhoeae DNA (KULWINDER) Negative (Negative) HIV 1&2 Antibody Non-Reactive (Nonreactive) C.trachomatis DNA (PCR) Negative (Negative) Glucose 1 Hr 50 gm 134 mg/dL (70-140) Group B Strep DNA Negative (Negative) Rhogam given: No Miscellaneous Test Assessment & Plan (1) Supervision of high-risk : COMMENT: PRR boy PC anibal joyce madelaina Jonathan (2) Multiparous: (3) Active labor at term: PLAN: Admit to L&D [place] FHR/TOCO Epidural if requested for pain Monitor VS Anticipate
--- NOTE | 2020-12-23 00:09 | EX.PCM.OBRPT ---
Assessment & Plan (1) Vaginal delivery: Maternal Data Information Final ROBBIN: 12/31/20 Final ROBBIN Source: US <20 weeks Gestational age: 38.5 Details Findings Specimen(s) Sent to Pathology: none Vaginal Delivery Maternal Presentation Maternal Presentation: Active Labor and Spontaneous Rupture of Membranes Operative Information Date of Procedure: 12/23/20 Pre-Operative Diagnosis: term gestation, active labor, SROM Post-Operative Diagnosis: same, live female infant Surgery / Procedure Performed: Spontaneous Vaginal Delivery Type of Anesthesia: Epidural Drain: Coyne to straight drain Estimated Blood Loss: 200 Time of Delivery: 23:54 Findings Description of Procedure: Patient progressed to fully dilated. At this time with good maternal pushing efforts 's head was delivered without complication followed by gentle downward traction for delivery of the anterior shoulder and the rest the infant's body. Delayed cord clamping was performed on the baby was on the mother's chest. was vigorous at time of . Placenta was delivered intact with gentle traction. First-degree perineal laceration appreciated-it was repaired with 3-0 Rapide. Patient Tolerated procedure well there are no complications. Presentation: Vertex Amniotic Membrane Rupture Type: Spontaneous Amniotic Fluid Description: Clear Placenta Disposition: [facility] Specimen(s) Removed: placenta Cord Vessel Description: 3 Vessels Cord Entanglement: None A Gender: Female (1 minute): 8 (5 minute): 9 Delayed Cord Clamping: Yes Post Vaginal Delivery Medications Given After Delivery: IV Pitocin Episiotomy Description: None Laceration: Perineal Extension/lac and 1st degree Complication Complications: None Admit VTE Documentation VTE Present on Admission: No VTE Mechan Device Prophylaxis: None VTE Pharm Prophylaxis Ordered: No Reason Prophylaxis Not Ordered: Procedure Not Indicated
[2020-12-23] MEDS: Ibuprofen 600 MG Tablet PO (07:14)
[2020-12-23] MEDS: Acetaminophen 500 MG Tablet 1000 MG PO ×2 (12:43→19:31)
[2020-12-23 13:43] LABS: Pathologist Review Reviewed
--- NOTE | 2020-12-23 20:45 | PN_ITS ---
Subjective Subjective Doing well per patient and nursing staff. Ambulating and taking PO without difficulty. Voiding and bowel without difficulty. Pain controlled. Bottle feeding. Denies headache, visual changes, chest pain, shortness of breath, increased vaginal bleeding, or leg pain. Objective Data Objective Data Vital Signs: Vital Signs Temp Pulse Resp BP Pulse Ox 97 F L 104 H 18 127/79 H 99 12/23/20 19:35 12/23/20 19:35 12/23/20 19:35 12/23/20 19:35 12/23/20 17:15 Oxygen Delivery Method Room Air Weight: 240 lb Body Mass Index (BMI) 41.1 Intake & Output: Intake and Output for Last 24 Hours 12/21/20 12/22/20 12/23/20 23:59 23:59 23:59 Intake Total 710.83 / 710.83 500 / 500 Output Total 550 / 550 Balance 710.83 / 710.83 -50 / -50 Lab / Micro Data Result Diagrams: 12/22/20 21:20 Labs: Laboratory Results - last 24 hr 12/22/20 12/22/20 21:20 21:20 WBC 24.0 H RBC 4.10 L Hgb 11.8 L Hct 37.2 MCV 90.7 MCH 28.8 MCHC 31.7 L RDW Std Deviation 43.7 RDW Coeff of Red 13.2 Plt Count 414 MPV 9.2 Immature Gran % (Auto) 0.700 Neut % (Auto) 76.0 H Lymph % (Auto) 14.5 L [place] % (Auto) 7.5 Eos % (Auto) 1.0 Baso % (Auto) 0.3 Absolute Neuts (auto) 18.2 H Absolute Lymphs (auto) 3.49 Nucleated RBC % 0 Differential Comment SCANNED Diff Path Review Reviewed Blood Type A POSITIVE Antibody Screen NEGATIVE Physical Exam Const alert and oriented x3 General Appearance: cooperative Orientation / Consciousness: awake, oriented to person, oriented to place and oriented to time Exam Limitations: no limitations HEENT normocephalic Head and Scalp: normal to inspection, normocephalic and atraumatic Face and Sinus: normal facial exam Eyes General Eye: normal appearance of both eyes Neck full ROM Chest Chest: symmetrical chest wall rise Resp normal respiratory effort and normal air movement Auscultation: clear to auscultation bilaterally Cardio regular rate, regular rhythm, S1 normal heart sound, S2 normal heart sound, no murmurs, no rub, no gallops and no clicks GI normal to inspection, nondistended, normoactive bowel sounds and non-tender appearance of the vagina normal Bladder / Kidney Exam: no CVA tenderness Back/Spine normal ROM Extremity normal to inspection and full ROM Skin no rashes or lesions noted Neuro oriented x3, CN's II-XII intact bilaterally and moves all extremities Sensorium / Orientation: awake, alert and oriented to person Motor Exam: clonus absent Deep Tendon Reflexes: Rt Patellar (L4): 2+ and Lt Patellar (L4): 2+ Assessment & Plan Assessment/Plan (1) Vaginal delivery: PLAN: 1) Routine care 2) BP mildly elevated, will continue to monitor 3) Pain management 4) Planning D/C home tomorrow if BP stable
[2020-12-24 01:10] VITALS: BP 112/72; PULSE 84; RESP 18; TEMP 36.4
[2020-12-24 05:44] LABS: Hematocrit 35.1 % (37-47); Hemoglobin 11.1 g/dL (12.0-15.0); Mean Corp Hgb Conc 31.6 g/dL (32-36); Mean Corpuscular Hgb 29.2 pg (27.0-32.0); Mean Corpuscular Volume 92.4 fL (81-99); Platelet Count 374 K/mm3 (150-450); RBC Distribution Width CV 13.4 % (11.6-14.6); RBC Distribution Width SD 44.8 fl (35.1-43.9); White Blood Count 16.8 K/mm3 (4.4-11.0)
[2020-12-24 07:36] VITALS: BP 134/84; PULSE 81; RESP 16; TEMP 36.4
--- NOTE | 2020-12-24 08:32 | PCM.PROGNOTE ---
Subjective Subjective Doing well per patient and nursing staff. Ambulating and taking PO without difficulty. Voiding and BM. Pain controlled. Denies headache, visual changes, chest pain, SOB, leg pain or increased bleeding. Planning D/C home today. Objective Data Objective Data Vital Signs: Vital Signs Temp Pulse Resp BP Pulse Ox 97.5 F L 81 16 134/84 H 99 12/24/20 07:36 12/24/20 07:36 12/24/20 07:36 12/24/20 07:36 12/23/20 17:15 Oxygen Delivery Method Room Air Weight: 240 lb Body Mass Index (BMI) 41.1 Intake & Output: Intake and Output for Last 24 Hours 12/22/20 12/23/20 12/24/20 23:59 23:59 23:59 Intake Total 710.83 / 710.83 500 / 500 Output Total 550 / 550 Balance 710.83 / 710.83 -50 / -50 Lab / Micro Data Result Diagrams: 12/24/20 05:38 Labs: Laboratory Results - last 24 hr 12/22/20 12/24/20 21:20 05:38 WBC 16.8 H RBC 3.80 L Hgb 11.1 L Hct 35.1 L MCV 92.4 MCH 29.2 MCHC 31.6 L RDW Std Deviation 44.8 H RDW Coeff of Red 13.4 Plt Count 374 MPV 9.0 Diff Path Review Reviewed Physical Exam Const alert and oriented x3 General Appearance: cooperative Orientation / Consciousness: awake, oriented to person, oriented to place and oriented to time Exam Limitations: no limitations HEENT normocephalic Head and Scalp: normal to inspection, normocephalic and atraumatic Face and Sinus: normal facial exam Eyes General Eye: normal appearance of both eyes Neck full ROM Chest Chest: symmetrical chest wall rise Resp normal respiratory effort and normal air movement Auscultation: clear to auscultation bilaterally Cardio regular rate, regular rhythm, S1 normal heart sound, S2 normal heart sound, no murmurs, no rub, no gallops and no clicks GI normal to inspection, nondistended, normoactive bowel sounds and non-tender appearance of the vagina normal Bladder / Kidney Exam: no CVA tenderness Back/Spine normal ROM Extremity normal to inspection and full ROM Skin no rashes or lesions noted Neuro oriented x3, CN's II-XII intact bilaterally and moves all extremities Sensorium / Orientation: awake, alert and oriented to person Motor Exam: clonus absent Deep Tendon Reflexes: Rt Patellar (L4): 2+ and Lt Patellar (L4): 2+ Assessment & Plan Assessment/Plan (1) Vaginal delivery: PLAN: 1)Routine and discharge instructions 2) Bottle feeding 3) Ibuprofen for pain 4) Follow up in 4 days for BP check, Preeclampsia signs reviewed and when to call. 6 weeks for PP visit 5) D/C home
--- NOTE | 2020-12-24 08:38 | PCM.DC ---
Discharge Instructions Diet Discharge Diet: No restrictions Activity Discharge Activity: Return to Normal Activity, May Shower and May Take a Tub Bath May resume sexual activity in: 6 weeks Weight Bearing Status: Full weight bearing Lifting Restrictions: Less than 50 lbs Additional Activity Instructions:: Monitor for pre-eclampsia symptoms or high blood pressure. If you have any headache, visual changes, pain in right upper part of abdomen, excessive swelling in hands and feet please call office for further evaluation. Dressing / Incision Call your doctor if your incision/area has: Sudden Increased Bleeding, Increased Pain/ Swelling, Increased Redness and Foul Smelling Discharge Call your doctor if you observe: Fever of 101 or Higher, Inability to urinate, Inability to have a bowel movement, Using more than one pad per hour, Shortness of breath, Dizziness, Fainting spells, Chest pain, Increased palpitations (irregular heartbeat), Calf discomfort and Uncontrolled pain Follow Up Care Test Results: Test results from this visit will be discussed in further detail at your follow-up appointment, if applicable. Discharge Plan Admission Admit Date/Time: 12/22/20 20:50 Primary Reason for Your Visit: Active Labor Attending Provider: Meghana Beach Primary Care Provider: Aubrie Woods Primary Instructions Patient Instructions: After a Vaginal , Understanding Preeclampsia Discharge Orders/Prescriptions Prescriptions: New ibuprofen 600 mg Tablet 600 mg PO Q6H PRN PRN (Reason: Pain Score 1-3) Qty: 30 RF: 0 Continued uaaevcxl-kvq-Vp-FA 1 mg Tablet 1 tab PO DAILY RF: 0 Discontinued aspirin 81 mg Tablet 81 mg PO DAILY RF: 0 Referrals / Follow Up: Meghana Beach MD [STAFF PHYSICIAN] - (Follow up 12/28/20 for blood pressure check in office. Follow up in 6 weeks for visit.) William PhysicianAubrie Primary [Primary Care Provider] - Disposition Disposition (needs filled in before D/C Order can be placed): Home, self care
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
[2020-12-24 12:30] VITALS: BP 146/74; PULSE 94; RESP 16; TEMP 36.2
[2020-12-24 12:45] VITALS: BP 133/90; PULSE 94
== END 2020-12-24 13:30 | disposition home or self-care (01) | DRG 560 ==
PROVIDERS: Admitting Provider Obstetrics & Gynecology; Visit Provider Obstetrics & Gynecology
DX: O99.334 Smoking (tobacco) complicating childbirth (principal); F17.200 Nicotine dependence, unspecified, uncomplicated; O70.0 First degree perineal laceration during delivery; Z79.82 Long term (current) use of aspirin; Z3A.38 38 weeks gestation of pregnancy; Z37.0 Single live birth
CPT/HCPCS: 59025; 59050; 85025; 85027; 86850; 86900; 86901; 99218; J7120; G0378

== ENCOUNTER 2024-06-10 10:13 | Emergency (ER) | payer MEDICAID, SELFPAY ==
[2024-06-10 10:13] VITALS: BP 117/71; PULSE 83; RESP 14; TEMP 36.1; O2SAT 97; BMI 36.1
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
== END 2024-06-10 10:40 | disposition home or self-care (01) ==
LOC: ED 10:36
PROVIDERS: Emergency Provider Emergency Medicine; Visit Provider Emergency Medicine
DX: K08.89 Other specified disorders of teeth and supporting structures (principal); K02.9 Dental caries, unspecified; F17.200 Nicotine dependence, unspecified, uncomplicated
CPT/HCPCS: 99282

== ENCOUNTER 2025-01-20 08:00 | Emergency (ER) | payer MEDICAID, SELFPAY ==
[2025-01-20 08:02] VITALS: BP 132/84; PULSE 113; RESP 16; TEMP 36.4; O2SAT 98; BMI 38.5
--- NOTE | 2025-01-20 08:51 | EDS_ITS ---
HPI History of Present Illness Chief Complaint: Dental [facility] Medical History Physical exam, pre-employment Pre-eclampsia Anxiety Depression Home Medications ?Medication ?Instructions ?Recorded ?Last Taken ?Type jwskwnjc-tty-Hc-FA 1 mg 1 tab PO DAILY pregna ncy 12/07/20 12/22/20 08:00 History tablet ibuprofen 600 mg tablet 600 mg PO Q6H PRN PRN Pain S core 12/24/20 Unknown Rx 1-3 #30 tabs oxycodone-acetaminophen 5 mg-325 1 tab PO Q6H PRN pain 3 days #12 06/10/24 Unknown Rx mg tablet (Percocet) tabs oxycodone-acetaminophen 5 mg-325 1 tab PO Q6H PRN pain 3 days #12 06/10/24 Unknown Rx mg tablet (Percocet) tabs penicillin V potassium 500 mg 500 mg PO 4X/DAY #40 tab s 06/10/24 Unknown Rx tablet amoxicillin 875 mg-potassium 1 tab PO BID 10 days #20 tabs 01/20/25 Unknown Rx clavulanate 125 mg tablet
--- NOTE | 2025-01-20 08:51 | ED.VIS.DENTA ---
HPI History of Present Illness Chief Complaint: Dental [facility] Medical History Physical exam, pre-employment Pre-eclampsia Anxiety Depression Home Medications ?Medication ?Instructions ?Recorded ?Last Taken ?Type eqbsipak-vzr-Ib-FA 1 mg 1 tab PO DAILY 12/07/20 12/22/20 08:00 History tablet ibuprofen 600 mg tablet 600 mg PO Q6H PRN PRN Pain Score 12/24/20 Unknown Rx 1-3 #30 tabs oxycodone-acetaminophen 5 mg-325 1 tab PO Q6H PRN pain 3 days #12 06/10/24 Unknown Rx mg tablet (Percocet) tabs oxycodone-acetaminophen 5 mg-325 1 tab PO Q6H PRN pain 3 days #12 06/10/24 Unknown Rx mg tablet (Percocet) tabs penicillin V potassium 500 mg 500 mg PO 4X/DAY #40 tabs 06/10/24 Unknown Rx tablet amoxicillin 875 mg-potassium 1 tab PO BID 10 days #20 tabs 01/20/25 Unknown Rx clavulanate 125 mg tablet Allergy/AdvReac Type Severity Reaction Status Date / Time adhesive tape Allergy Rash Verified 01/20/25 08:01 nalbuphine HCl (From Nubain) Allergy Angioedema Verified 01/20/25 08:01 sertraline (From Zoloft) Allergy Other Verified 01/20/25 08:01 bupropion HCl (From AdvReac PSYCHOTIC Verified 01/20/25 08:01 Wellbutrin) EPISODES paroxetine (From Paxil) AdvReac DIZZINESS Verified 01/20/25 08:01 Family History Mother Diabetes Surgical History H/O dilation and curettage Social History Smoking Status: Heavy Smoker (>10/day) alcohol intake: never substance use type: does not use caffeine: Yes what type of physical activity do you participate in: none seatbelt use: always do you feel safe at home: Yes additional social history: single- unemployed EXAM Physical Exam Const Vital Signs: 01/20/25 08:02 01/20/25 09:25 Temperature 97.5 F L 98.1 F Temperature Source Temporal Pulse Rate 113 H 81 Respiratory Rate 16 16 Blood Pressure 132/84 H 132/78 H Blood Pressure Mean 100 96 Pulse Ox 98 99 Oxygen Delivery Method Room Air [facility] Narrative Medical decision making narrative: HISTORY OF PRESENT ILLNESS: 34-year-old female presents with dental pain. History of dental issues. Noticed on the right lip. REVIEW OF SYSTEMS: Pertinent positives:dental pain Pertinent negatives: Fever, double vision, neck stiffness PHYSICAL EXAM: Nursing triage notes reviewed, Vital signs reviewed Constitutional: please see mdm HENT: Exam limited by patient compliance. MMM, poor dentition, completely eroded teeth no submandibular edema or induration, no tonsillar exudates or erythema, uvula midline, patient was controlling secretions, no drooling, no trimus, no dysphonia Eyes: Pupils equal round and reactive to light, Extraocular muscles intact Neck: No stridor, no JVD, full neck ROM Lungs: Clear to auscultation, No wheezing or rales. No increased work of breathing, no conversational dyspnea, no accessory muscle use, no nasal flaring. No respiratory distress noted Heart: Regular rate and rhythm, No murmurs, No rubs and No gallops, 2+ distal pulses (radial, femoral, posterior tibial) in all extremities MEDICAL DECISION MAKING: Chief Complaint: Dental pain External records reviewed: Reviewed prior ED care. Patient was seen in the ED in May 2024 for nasal pain and facial swelling. At that time patient was given a prescription for antibiotics and discharged with close dental follow-up. Factors affecting care: Poor dentition Social determinants of health: None History obtained from others: Friend Consults: None [facility] Narrative: The patient was hemodynamically stable, afebrile, nontoxic-appearing. 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 Patient was given antibiotics here as well as oral oxycodone x 1. He is not given narcotics to go home. She was given local community dental resources. She is given Augmentin to go home and strict return precautions. Shared decision making: I will have a discussion with the patient and or visitors regarding risk/benefits of further testing or admission. They will be made aware of of the risk/benefits inherent in this decision they will be given the opportunity to voice understanding. Impression: 1. Dental caries 2. Acute dental pain Disposition: Discharge home This note was generated with [employer] dictation software. It may contain incorrect words, spelling, and punctuation that were not noted in review of the chart prior to signing. Discharge Plan Triage Chief Complaint: Dental ED Provider: Michael Cullen Dx/Rx/DC Orders Clinical Impression: Dental abscess, Dental caries Instructions: Dental Abscess Prescriptions: New amoxicillin-pot clavulanate 875-125 mg tablet 1 tab PO BID 10 Days Qty: 20 0RF No Action fznetsxn-flg-Gx-FA 1 mg Tablet 1 tab PO DAILY ibuprofen 600 mg Tablet 600 mg PO Q6H PRN PRN (Reason: Pain Score 1-3) Qty: 30 0RF oxycodone-acetaminophen [Percocet] 5-325 mg tablet 1 tab PO Q6H PRN (Reason: pain) 3 Days Qty: 12 0RF penicillin V potassium 500 mg tablet 500 mg PO 4X/DAY Qty: 40 0RF oxycodone-acetaminophen [Percocet] 5-325 mg tablet 1 tab PO Q6H PRN (Reason: pain) 3 Days Qty: 12 0RF Primary Care Provider: Care Physician,No Primary Referrals: Dentist,Your [STAFF PHYSICIAN] - Activity Restrictions/Additional Instructions: Thank you for trusting us with your care today! Please take antibiotics until course is complete. Please take Tylenol (2 pills, 650 mg), ibuprofen (2 pills, 400 mg) every 6 hours as needed for pain and fever control. Please return to the emergency department if your symptoms change or worsen. Please follow with Dentistry for further outpatient evaluation and management. Print Language: Thai Disposition Disposition: Home, Self Care Discharge Date/Time: 01/20/25 09:27
[2025-01-20] MEDS: Amox/Clavulanate 875 MG Tablet PO (09:24)
[2025-01-20] MEDS: oxyCODONE 5 MG Tablet PO (09:24)
[2025-01-20 09:25] VITALS: BP 132/78; PULSE 81; RESP 16; TEMP 36.7; O2SAT 99
== END 2025-01-20 09:27 | disposition home or self-care (01) ==
LOC: ED 09:22
PROVIDERS: Emergency Provider Emergency Medicine; Visit Provider Emergency Medicine
DX: K04.7 Periapical abscess without sinus (principal); K02.9 Dental caries, unspecified
CPT/HCPCS: 99283

== ENCOUNTER 2025-02-27 12:54 | Emergency (ER) | payer MEDICAID, SELFPAY ==
[2025-02-27 12:56] VITALS: BP 146/73; PULSE 95; RESP 18; TEMP 37.1; O2SAT 100; BMI 38.8
--- NOTE | 2025-02-27 13:16 | EDS_ITS ---
HPI History of Present Illness HPI Narrative: Patient presents with a right knee injury that occurred today just prior to arrival. Patient states she tripped and fell forward. Patient states she landed on her right knee. Patient states her pain goes from her right knee to her right ankle. Patient describes her pain as sharp. Patient states it is worse with any movement. Patient states she was unable to stand after the fall. Patient denies any paresthesias or weakness. Patient denies any head injury or loss of consciousness. Patient denies any other injuries. Chief Complaint: Fall Informant: patient Occured/Mechanism Mechanism/Context: Yes fall Onset/Context/Timing Onset: Today Context: Sudden Onset Timing: Continuous Quality of Pain: Sharp Location: Right knee Worsened by: Movement Relieved by: Nothing [facility] Medical History Physical exam, pre-employment Pre-eclampsia Anxiety Depression Home Medications ?Medication ?Instructions ?Recorded ?Last Taken ?Type aclfquts-cxm-Gp-FA 1 mg 1 tab PO DAILY pregna ncy 12/07/20 12/22/20 08:00 History tablet ibuprofen 600 mg tablet 600 mg PO Q6H PRN PRN Pain S core 12/24/20 Unknown Rx 1-3 #30 tabs oxycodone-acetaminophen 5 mg-325 1 tab PO Q6H PRN pain 3 days #12 06/10/24 Unknown Rx mg tablet (Percocet) tabs oxycodone-acetaminophen 5 mg-325 1 tab PO Q6H PRN pain 3 days #12 06/10/24 Unknown Rx mg tablet (Percocet) tabs penicillin V potassium 500 mg 500 mg PO 4X/DAY #40 tab s 06/10/24 Unknown Rx tablet amoxicillin 875 mg-potassium 1 tab PO BID 10 days #20 tabs 01/20/25 Unknown Rx clavulanate 125 mg tablet oxycodone-acetaminophen 5 mg-325 1 tab PO Q6H PRN PRN Pain 3 days 02/27/25 Unknown Rx mg tablet #12 TABLETS Allergy/AdvReac Type Severity Reaction Status Date / Time adhesive tape Allergy Rash Verified 01/20/25 08:01 nalbuphine HCl (From Nubain) Allergy Angioedema Verified 01/20/25 08:01 sertraline (From Zoloft) Allergy Other Verified 01/20/25 08:01 bupropion HCl (From AdvReac PSYCHOTIC Verified 01/20/25 08:01 Wellbutrin) EPISODES paroxetine (From Paxil) AdvReac DIZZINESS Verified 01/20/25 08:01 Family History Mother Diabetes Surgical History H/O dilation and curettage Social History Smoking Status: Heavy Smoker (>10/day) alcohol intake: never substance use type: does not use caffeine: Yes what type of physical activity do you participate in: none seatbelt use: always do you feel safe at home: Yes additional social history: single- unemployed ROS ROS ED Constitutional Constitutional ED: Denies chills or fever(s) Eyes Eyes: Denies blurry vision or change in vision ENT ENT ED: Denies rhinorrhea or sore throat Cardiovascular Cardiovascular: Denies chest pain or palpitations Respiratory/Chest Respiratory/Chest: Denies cough or dyspnea Gastrointestinal Gastrointestinal: Denies nausea or vomiting Genitourinary Genitourinary ED: Denies dysuria or hematuria Musculoskeletal Musculoskeletal: Denies back pain or neck pain Integumentary Denies abscess or rash Neurologic Neurologic: Denies headache(s) or weakness Allergic/Immunologic Allergic/Immunologic ED: Denies mouth swelling or urticaria EXAM Physical Exam Const Vital Signs: 02/27/25 12:56 02/27/25 13:01 02/27/25 13:57 Temperature 98.8 F Temperature Source Oral Pulse Rate 95 76 Respiratory Rate 18 Respiratory Effort Normal Respiratory Depth Normal Respiratory Pattern Normal Blood Pressure 146/73 H 108/78 Blood Pressure Mean 97 88 Pulse Ox 100 Oxygen Delivery Method Room Air Room Air Positive well nourished and well developed Constitutional Narrative: BMI is 38.8 General Appearance ED: well developed and NAD HEENT Reports moist mucous membranes Neck full ROM and supple Extremity Extremity Narrative: There is diffuse tenderness over the right knee. Range of motion is limited in all motions of the right knee secondary to pain. There is some edema over the right knee. Pedal pulses are equal bilaterally. Sensation was intact to light touch in all digits. Capillary refills less than 2 seconds in all digits. Neuro oriented x3, CN's II-XII intact bilaterally, moves all extremities and no sensory deficits noted Sensorium / Orientation: alert Motor Exam: strength 5/5 throughout Psych Mood & Affect: anxious MDM MDM MDM Narrative Medical decision making narrative: Differential diagnosis includes fracture, sprain, contusion, and patellar tendon rupture. X-rays of the right knee will be obtained to assess for fracture and joint effusion. Radiography Diagnostic Testing: Clinical Impression(s) from Imaging Studies Knee X-Ray 02/27/25 13:30 IMPRESSION: Mildly displaced proximal tibial fracture with extension of the tibial plateau. Knee joint effusion. Reading Location: [id number] X-rays of the right knee were obtained. There are 5 views. On my independent interpretation, there is a mildly displaced proximal tibia fracture that extends into the tibial plateau. There is no fibula fracture noted. Radiologist also interpreted the x-rays and agrees. Treatment and Re-Evaluation Narrative: Patient was given an injection of morphine. Patient was given a repeat dose of morphine. Patient was advised of her findings. Patient was advised of the need for knee immobilizer. Patient was instructed to remain nonweightbearing. Earl zamaniman was instructed to follow-up with orthopedics in 3 to 5 days. Patient was instructed to ice and elevate the right knee. Patient was given a prescription for Percocet. Patient was instructed to return if worse in any way. Patient understood and was agreeable with the plan. All questions were answered. Discharge Plan Triage Chief Complaint: Fall ED Provider: Natanael Thacker Dx/Rx/DC Orders Clinical Impression: Closed nondisplaced fracture of right tibial plateau, Fall Instructions: ED Leg Fracture Prescriptions: New oxycodone-acetaminophen 5-325 mg tablet 1 tab PO Q6H PRN PRN (Reason: Pain) 3 Days Qty: 12 0RF No Action rdfjzchy-bsd-Zs-FA 1 mg Tablet 1 tab PO DAILY ibuprofen 600 mg Tablet 600 mg PO Q6H PRN PRN (Reason: Pain Score 1-3) Qty: 30 0RF amoxicillin-pot clavulanate 875-125 mg tablet 1 tab PO BID 10 Days Qty: 20 0RF oxycodone-acetaminophen [Percocet] 5-325 mg tablet 1 tab PO Q6H PRN (Reason: pain) 3 Days Qty: 12 0RF penicillin V potassium 500 mg tablet 500 mg PO 4X/DAY Qty: 40 0RF oxycodone-acetaminophen [Percocet] 5-325 mg tablet 1 tab PO Q6H PRN (Reason: pain) 3 Days Qty: 12 0RF Primary Care Provider: Care Physician,No Primary Referrals: Fernando Badillo MD [Med Staff - Active Staff] - 3-5 Days Care Physician,No Primary [Primary Care Provider] - Print Language: Malawian Disposition Disposition: Home, Self Care
--- NOTE | 2025-02-27 13:30 | RAD_ITS ---
PROCEDURE: KNEE 4 OR MORE VIEWS 02/27/2025 REASON FOR EXAM: INJURY/PAIN TECHNIQUE: KNEE 4 OR MORE VIEWS Laterality: Right COMPARISON: None. FINDINGS: Lucency through the proximal tibia with intra-articular extension likely representing a mildly displaced fracture. Small suprapatellar knee joint effusion. RAD/Knee 4 or More Views IMPRESSION: Mildly displaced proximal tibial fracture with extension of the tibial plateau. Knee joint effusion. Reading Location: [id number]
[2025-02-27 13:57] VITALS: BP 108/78; PULSE 76
[2025-02-27 15:21] VITALS: BP 127/71; PULSE 76; RESP 18; TEMP 36.9; O2SAT 99
== END 2025-02-27 15:39 | disposition home or self-care (01) ==
PROVIDERS: Emergency Provider Emergency Medicine; Visit Provider Emergency Medicine
DX: S82.144A Nondisplaced bicondylar fracture of right tibia, initial encounter for closed fracture (principal); F17.200 Nicotine dependence, unspecified, uncomplicated; W19.XXXA Unspecified fall, initial encounter
CPT/HCPCS: 73564; 96374; 96375; 99285; A4216

== ENCOUNTER 2025-06-23 18:17 | Emergency (ER) | payer MEDICAID, SELFPAY ==
[2025-06-23 18:18] VITALS: BP 138/78; PULSE 116; RESP 22; TEMP 36.1; O2SAT 100
--- NOTE | 2025-06-23 18:37 | US_ITS ---
PROCEDURE: VENOUS DUPLEX IMAG/LIMITED/UNI 06/23/2025 REASON FOR EXAM: F 35 y/o TECHNIQUE: Procedure Code: USVDUL Modality: US Procedure: VENOUS DUPLEX IMAG/LIMITED/UNI US/Venous Duplex Imag/Limited/Uni IMPRESSION: Limited evaluation as the tibial veins were not evaluated. Within the visualiz ed lower extremity veins, no acute occlusive deep vein thrombosis. Reading Location: [id number]
--- NOTE | 2025-06-23 19:00 | RAD_ITS ---
PROCEDURE: TIBIA FIBULA 2 VIEWS 06/23/2025 REASON FOR EXAM: PAIN, TRIPPED AND FELL TECHNIQUE: Procedure Code: RADTF Modality: DX Procedure: TIBIA FIBULA 2 VIEWS Laterality: Right COMPARISON: None. FINDINGS: No acute fracture or dislocation. Status post ORIF of the proximal tibia with plate and screw fixation. Hardware appears intact without evidence for loosening or failure. Preserved visualized joint spaces. No appreciable soft tissue swelling. RAD/Tibia & Fibula 2 Views IMPRESSION: No acute fracture or dislocation. ORIF of the proximal tibia with intact hardware. Reading Location: [id number]
[2025-06-23 19:08] VITALS: BP 118/70; PULSE 98; RESP 16; O2SAT 98
[2025-06-23] MEDS: Ketorolac 30 MG/ML Syringe IM (19:15)
--- NOTE | 2025-06-23 23:06 | ED.VIS.FALL ---
HPI HPI - Fall History of Present Illness Chief Complaint: Fall Narrative Narrative: Patient is a 35-year-old female presenting to the emergency department for right leg pain. Patient states she had surgery of her right tibia in March after injuring it. States that she usually ambulates with a walker secondary to this. States that 2 days ago on she tripped on a concrete step hitting her right gao on a concrete step. She denies falling. States since then she has had pain to her right anterior gao as well as her calf. She endorses swelling to her leg as well. Denies any other injuries. She did not hit her head or have any loss of consciousness. Denies any neck or back pain. She has not been taking anything for pain at home. She is concerned that she has loosened hardware from her surgery. Denies any numbness or weakness in her leg. Denies CP or SOB. [facility] Medical History Physical exam, pre-employment Pre-eclampsia Anxiety Depression Home Medications ?Medication ?Instructions ?Recorded ?Last Taken ?Type acetaminophen 500 mg tablet 500 mg PO Q6H PRN fever or pain 06/23/25 06/23/25 History gabapentin 300 mg capsule 900 mg PO QHS 06/23/25 06/22/25 History ibuprofen 600 mg tablet 600 mg PO TID 06/23/25 06/23/25 History Allergy/AdvReac Type Severity Reaction Status Date / Time adhesive tape Allergy Rash Verified 06/23/25 18:18 nalbuphine HCl (From Nubain) Allergy Angioedema Verified 06/23/25 18:18 sertraline (From Zoloft) Allergy Other Verified 06/23/25 18:18 bupropion HCl (From AdvReac PSYCHOTIC Verified 06/23/25 18:18 Wellbutrin) EPISODES paroxetine (From Paxil) AdvReac DIZZINESS Verified 06/23/25 18:18 Family History Mother Diabetes Surgical History H/O dilation and curettage Social History Smoking Status: Heavy Smoker (>10/day) alcohol intake: never substance use type: does not use caffeine: Yes what type of physical activity do you participate in: none seatbelt use: always do you feel safe at home: Yes additional social history: single- unemployed ROS ROS ED ROS Narrative See HPI EXAM Physical Exam Narrative Exam Narrative: Vital signs: Reviewed General: Alert and oriented x 3. No acute distress. Well-appearing, nontoxic. HEENT: Head is normocephalic and atraumatic, sinuses nontender, pupils equal round and reactive. Nares are patent. Oropharynx and throat exams normal. Neck: Supple without lymphadenopathy nontender Cardiovascular: Regular rate and rhythm, no murmurs. No rubs or gallops. Normal S1 and S2 Respiratory: Clear to auscultation bilaterally. No wheezes, rales, rhonchi Abdominal: Soft and nontender. Normal bowel sounds. No guarding or rebound. Nonsurgical abdomen Extremities: There is a small 1-1/2 cm healing superficial abrasion to the distal right anterior gao. There is diffuse tenderness to palpation of the mid and proximal tibia. No obvious deformity. Vertical healed incision to the medial portion of the proximal anterior gao. There is mild asymmetric swelling of the right lower leg compared to the the left. There is proximal right calf tenderness to palpation. No palpable cords. No erythema, warmth, fluctuance or induration to the calf or leg. No bruising. Normal range of motion. Normal sensation. DP and PT pulses intact in RLE. Skin: No rash or redness. Neurological: Cranial nerves II through XII are grossly intact. Normal strength and sensation. Normal cerebellar function The rest of the physical exam is unremarkable Const Vital Signs: 06/23/25 18:18 06/23/25 19:08 06/23/25 19:12 Temperature 97.0 F L Temperature Source Temporal Pulse Rate 116 H 98 Respiratory Rate 22 H 16 Respiratory Effort Normal Respiratory Depth Normal Respiratory Pattern Normal Blood Pressure 138/78 H 118/70 Blood Pressure Mean 98 86 Pulse Ox 100 98 Oxygen Delivery Method Room Air Room Air Room Air MDM MDM MDM Narrative Medical decision making narrative: Patient is a 35-year-old female presenting to the emergency department for right lower leg pain after a mechanical trip and fall. Patient was seen and examined. Vitals are stable. Triage vitals with mild tachycardia at 116 likely due to pain. Denies any chest pain or shortness of breath. Patient appears uncomfortable, however resting in bed. No acute distress. Differential includes but is not limited to: Fracture, dislocation, bony contusion, DVT Patient was given IM Toradol for symptomatic control. X-ray of the tib-fib was reviewed by myself and there is no fracture or dislocation noted. Radiology read in agreement with intact hardware. DVT ultrasound shows limited evaluation as the tibial veins were not evaluated. Within the visualized lower extremity veins, no acute occlusive DVT. Patient was updated on the imaging findings. Discussed the limited evaluation of the DVT ultrasound. I think this is of less concern than fracture or loosening of her hardware from the injury. No large vessel DVT noted. She has no chest pain or shortness of breath. I explained that if she continues to have pain over the next week she needs to follow-up with her primary care doctor for repeat ultrasound to further evaluate. I explained RICE instructions for her for home. Patient discharged from the Emergency Department. I do not feel that the patient's evaluation reveals any acute reason for admission at this time. I instructed them to either follow-up with their primary care physician or promptly return to the Emergency Department for reevaluation should symptoms worsen or new symptoms develop. I explained what symptoms would indicate the need to return to the emergency department. Shared decision making was used. The patient voiced understanding of the treatment plan and is agreeable with it. Clinical impression Right leg pain History & Record Review Discussion w/independent historian: Patient and Family Additional record(s) reviewed:: Prior ED visit Radiography X-Ray: Read by ED Physician and No Fracture Diagnostic Testing: Clinical Impression(s) from Imaging Studies Venous Duplex 06/23/25 18:37 IMPRESSION: Limited evaluation as the tibial veins were not evaluated. Within the visualized lower extremity veins, no acute occlusive deep vein thrombosis. Reading Location: [id number] Tibia/Fibula X-Ray 06/23/25 19:00 IMPRESSION: No acute fracture or dislocation. ORIF of the proximal tibia with intact hardware. Reading Location: [id number] Discharge Plan Triage Chief Complaint: Fall ED Provider: Rose Brewer Dx/Rx/DC Orders Clinical Impression: Leg pain, right Instructions: Self-Care for Strains and Sprains, ED Skin Tear (Skin Avulsion), ED RICE Prescriptions: No Action acetaminophen 500 mg tablet 500 mg PO Q6H PRN (Reason: fever or pain) gabapentin 300 mg capsule 900 mg PO QHS ibuprofen 600 mg tablet 600 mg PO TID Primary Care Provider: Mara Will Referrals: Mara Will, DENTAL RECEPTIONIST-C [Primary Care Provider, Medical] - As soon as possible Activity Restrictions/Additional Instructions: Take Motrin and Tylenol at home for pain control. You can ice and elevate your leg to help with pain and swelling. Given the ultrasound was nondiagnostic and the small veins in your lower leg if you continue to have pain or swelling you need to follow-up with your primary care doctor for repeat ultrasound in 1 week. Your evaluation in the Emergency Department did not reveal any acute reason for admission. However, I want to emphasize that you may be early in the course of a disease process or illness even if it is not present. For this reason you should follow-up within 24 hours for reevaluation with either your primary care physician or if necessary back here in the Emergency Department. You should return to the Emergency Department immediately if your symptoms worsen or new symptoms develop. Print Language: Kuwaiti Disposition Disposition: Home, Self Care Discharge Date/Time: 06/23/25 19:56
== END 2025-06-23 19:56 | disposition home or self-care (01) ==
PROVIDERS: Emergency Provider Student in an Organized Health Care Education/Training Program; PCP Nurse Practitioner Family; Visit Provider Student in an Organized Health Care Education/Training Program
DX: M79.604 Pain in right leg (principal); S80.811A Abrasion, right lower leg, initial encounter; W18.49XA Other slipping, tripping and stumbling without falling, initial encounter; F17.200 Nicotine dependence, unspecified, uncomplicated; Z96.7 Presence of other bone and tendon implants; Z87.828 Personal history of other (healed) physical injury and trauma
CPT/HCPCS: 73590; 93971; 96372; 99282